=== PATIENT | male | born 1970 | race Two or more races ===

== ENCOUNTER 2016-11-02 15:22 | Emergency (ER) | payer OTHER, SELFPAY ==
[~2016-11-02] VITALS: Ht 182.9 cm; Wt 83.9 kg
[~2016-11-02 15:22] MED LIST: ASCO25TA PO; AZIT250T3 PO; MAPA325T2 PO
[2016-11-02] MEDS ORDERED: antibiotic (15:33)
[2016-11-02] MEDS ORDERED: LIDOCAINE W/EPINEPHRINE 1% 20ML VIAL As Ordered ONE (15:56)
[2016-11-02] MEDS ORDERED: LIDOCAINE W/EPINEPHRINE 1% 20ML VIAL SC ONE (16:00)
[2016-11-02] MEDS ORDERED: ULTR50TA PO (16:45)
[2016-11-02 16:51] VITALS: BP 114/65
== END 2016-11-02 16:58 | disposition home or self-care (01) ==
LOC: M ED 16:13
DX: L02.411 Cutaneous abscess of right axilla (principal)

== ENCOUNTER 2016-11-05 13:12 | Emergency (ER) | payer OTHER ==
[~2016-11-05] VITALS: Ht 182.9 cm; Wt 81.6 kg
[~2016-11-05 13:12] MED LIST changes: +ULTR50TA PO; +antibiotic
[2016-11-05 13:13] VITALS: BP 101/63
[2016-11-05] MEDS ORDERED: KEFL500C7 PO (13:54)
== END 2016-11-05 14:46 | disposition home or self-care (01) ==
LOC: M ED 14:19
DX: L73.2 Hidradenitis suppurativa (principal)

== ENCOUNTER 2017-04-07 18:26 | Emergency (ER) | payer OTHER ==
[~2017-04-07] VITALS: Ht 182.9 cm; Wt 85.2 kg
[2017-04-07 18:26] VITALS: BP 117/74
[~2017-04-07 18:26] MED LIST changes: +AZIT-12 PO; -AZIT250T3 PO; +KEFL500C17 PO; -ULTR50TA PO; +ULTR50TA8 PO
[2017-04-07] MEDS ORDERED: DOXY100C37 PO (19:37)
[2017-04-07] MEDS ORDERED: NORCOTAB PO (19:37)
== END 2017-04-07 19:54 | disposition home or self-care (01) ==
LOC: M ED 18:26
DX: L02.411 Cutaneous abscess of right axilla (principal); I51.9 Heart disease, unspecified; Z95.0 Presence of cardiac pacemaker; Z87.891 Personal history of nicotine dependence

== ENCOUNTER 2017-07-16 08:36 | Day surgery (SDC) | payer OTHER ==
[2017-07-16] MEDS ORDERED: NS 1,000 ML IV (09:45)
[2017-07-16] MEDS ORDERED: PROPOFOL 200 MG/20 ML VIAL As Ordered (10:27)
[2017-07-16] MEDS ORDERED: LIDOCAINE 2% INJ 100 MG/5 ML SDV (FOR ANES.) As Ordered (10:27)
== END 2017-07-16 11:00 | disposition home or self-care (01) ==
LOC: M OPP 08:36
DX: R13.10 Dysphagia, unspecified (principal); R12 Heartburn; K31.89 Other diseases of stomach and duodenum; R00.1 Bradycardia, unspecified; Z95.0 Presence of cardiac pacemaker; G71.11 Myotonic muscular dystrophy; Z87.891 Personal history of nicotine dependence
CPT/HCPCS: 43239

== ENCOUNTER 2020-11-15 05:25 | Inpatient (IN) | payer OTHER, SELFPAY ==
[~2020-11-15] VITALS: Ht 182.9 cm; Wt 80.2 kg
[~2020-11-15 05:25] MED LIST changes: +ASCO250T20 PO; -ASCO25TA PO; +DOXY100C37 PO; +HYDR-3715 PO; -MAPA325T2 PO; +MAPA325T8 PO
[2020-11-15 06:18] LABS: BASO % 0.3 % (0.0-1.0); HEMOGLOBIN 16.8 g/dl (13.5-17.5); LYMPH # 1.1 10^3/uL (1.5-5.0); MEAN CORPUSCULAR HEMOGLOBIN 30.2 pg (27.0-33.0); MEAN CORPUSCULAR HGB CONC 32.3 g/dl (32.0-36.5); MEAN CORPUSCULAR VOLUME 93.5 fl (80.0-96.0); MONO # 1.3 10^3/uL (0.0-0.8); MONO % 9.4 % (2.0-8.0); NEUTROPHILS # 11.4 10^3/uL (1.5-8.5); NEUTROPHILS % 81.7 % (36.0-66.0); PLATELET COUNT, AUTOMATED 220 10^3/uL (150-450); RED BLOOD COUNT 5.56 10^6/uL (4.30-6.10); WHITE BLOOD COUNT 13.9 10^3/uL (4.0-10.0)
--- NOTE | 2020-11-15 06:54 | REPVR ---
PROCEDURE INFORMATION: Exam: XR Chest Exam date and time: 11/15/2020 6:03 AM Age: 49 years old Clinical indication: Pain; Other: Not specified; Additional info: Trauma TECHNIQUE: Imaging protocol: XR of the chest. Views: 2 views. COMPARISON: CR Chest, 2 view PA, Lat 11/22/2015 8:22 AM FINDINGS: Lungs: Comparison to the previous chest radiograph from 11/22/2015 shows interval development of subsegmental atelectasis in the right lung base. The remainder of the lungs are otherwise well-aerated. Pleural spaces: Unremarkable. No pleural effusion. No pneumothorax. Heart/Mediastinum: A left subclavian dual-chamber pacemaker is present in satisfactory position, unchanged. The heart size is normal. Bones/joints: Unremarkable. IMPRESSION: 1. Comparison to the previous chest radiograph from 11/22/2015 shows interval development of subsegmental atelectasis in the right lung base. The remainder of the lungs are otherwise well-aerated. 2. A left subclavian dual-chamber pacemaker is present in satisfactory position, unchanged. The heart size is normal. Electronically signed by: Rehan Larsen On 11/15/2020 06:54:11 AM
[2020-11-15 06:55] LABS: BLOOD UREA NITROGEN 6 MG/DL (7-18); GLOMERULAR FILTRATION RATE > 60.0 (>60); GLUCOSE, FASTING 92 MG/DL (70-100); SODIUM LEVEL 138 MEQ/L (136-145)
[2020-11-15 06:56] LABS: ALBUMIN 3.4 GM/DL (3.2-5.2); ALT/SGPT 30 U/L (12-78); BILIRUBIN,DIRECT 0.3 MG/DL (0.0-0.2); BILIRUBIN,TOTAL 0.9 MG/DL (0.2-1.0); CALCIUM LEVEL 9.6 MG/DL (8.5-10.1); CARBON DIOXIDE LEVEL 29 MEQ/L (21-32); CHLORIDE LEVEL 103 MEQ/L (98-107); CK-MB VALUE MASS 3.5 NG/ML (<3.6); CPK CREATINE PHOSPHOKINASE 559 U/L (39-308); FREE T4 1.04 NG/DL (0.76-1.46); MB/CK RELATIVE INDEX 0.63 (< OR =4); POTASSIUM SERUM 4.5 MEQ/L (3.5-5.1); THYROID STIMULATING HORMONE 0.478 uIU/ML (0.358-3.740); TOTAL PROTEIN 7.6 GM/DL (6.4-8.2); TROPONIN I < 0.02 NG/ML (< 0.10)
[2020-11-15] MEDS ORDERED: ACETAMINOPHEN TAB 650MG DOSE (2X325MG) PO ONE (08:00)
[2020-11-15 08:08] LABS: ETHYL ALCOHOL (ETHANOL) < 0.003 % (0.000-0.010)
--- NOTE | 2020-11-15 09:53 | REP ---
INDICATION: fever, hypoxia COMPARISON: None TECHNIQUE: Axial noncontrast images from the thoracic inlet to the upper abdomen with coronal and sagittal reformations. This CT examination was performed using the following dose reduction techniques: Automated exposure control, adjustment of mA and/or kv according to the patient's size, and use of iterative reconstruction technique. FINDINGS: Mild to moderate bibasilar atelectasis (left greater than right) noted. No effusion. No pneumothorax. Underlying chronic mild emphysematous changes suggested. Tracheobronchial tree is patent. No obvious adenopathy by noncontrast evaluation. Mediastinum demonstrates normal thoracic aorta and pulmonary vasculature. Pacemaker noted without cardiomegaly or pericardial effusion. IMPRESSION: Mild to moderate bibasilar atelectasis. <Electronically signed by Grant Siu > 11/15/20 [id number]
[2020-11-15] MEDS ORDERED: LIDOCAINE 2% 5ML JELLY UROJET TOP ONE (10:35)
[2020-11-15] MEDS ORDERED: NS 1,000 ML IV ONE (10:45)
[2020-11-15] MEDS ORDERED: ACETAMINOPHEN TAB 650MG DOSE (2X325MG) PO PRN (12:40)
[2020-11-15] MEDS ORDERED: cefTRIAXone SOD 1 GM in D5W MINI-BAG PLUS 50 ML IV SCH (14:00)
--- NOTE | 2020-11-15 14:17 | HPEPDOC ---
General Date of Admission November 15, 2020 at 12:36 Date of Service: November 15, 2020 Chief Complaint The patient is a 49-year-old male admitted with a reason for visit of Fever, Hypoxia, & Leukocytosis. Source: Patient History of Present Illness Mr. Nowak is a 49 year old male with bradycardia s/p pacemaker placement who presents after a fall and generalized weakness. Yesterday he had his second COVID vaccination. He does not know which brand he had, but he did not have any symptoms after the first COVID vaccination. After his second vaccination, his arm was sore. He was sitting on the couch when he fell to the ground. He denies loss of consciousness, but reported lightheadedness/dizzines, blurry vision, and generalized weakness. His arms were sore. His legs were weak. He could not stand or crawl. He told me he was down for about 8 hours. Afterwards, he reached onto the couch and grabbed his phone to call 911. He did not tell me why he waited 8 hours, but he said he could not reach initially. He was brought to the ED for evaluation. Work up in the ED was significant for leukocytosis of 13.9, hypoxia with pO2 of 60, and fever of 101. On examination, patient had course rales/rhonchi. When I saw patient, he was laying in bed. he had a red right eye, but says that he had bumped his mask into that eye. Otherwise, he had a cough since yesterday. It is a nonproductive cough. Imaging did not suggest infiltrate, but atelectasis, but he may have early pneumonia. Otherwise, no diarrhea or abdominal pain to suggest GI pathology. No neck stiffness or confusion to suggest brain pathology. Patient will be admitted for CAP. Home Medications No Active Prescriptions or Reported Meds Allergies Coded Allergies: No Known Allergies (Unverified , 11/15/20) Past Medical History Medical History 1. Bradycardia requiring pacemaker Surgical History 1. Pacemaker placement Family History Denies knowledge of medical history in parents Social History * Smoker: former Smoker (Quit 10 years ago, about 1 pack per month) Alcohol: occationally (Social drinker of beer) Drugs: denies A-FIB/CHADSVASC A-FIB History Current/History of A-Fib/PAF?: No Review of Systems Constitutional: Reports: Weakness; Denies: Chills Eyes: Reports: Vision change (Blurry vision this morning when falling) ENT: Denies: Sore Throat Skin: Reports: Rash (Boil in right armpit) Pulmonary: Reports: Cough (Non productive); Denies: Dyspnea Cardiovascular: Reports: Lt Headedness; Denies: Chest Pain Gastrointestinal: Denies: Abdominal Pain, Diarrhea Genitourinary: Denies: Dysuria Hematologic: Denies: Bruising Musculoskeletal: Denies: Neck Pain, Back Pain Neurological: Denies: Numbness Physical Examination General Exam: Positive: Alert, Cooperative Eye Exam: Positive: EOMI, Other Eye Symptoms (Eye redness in right eye, says he poked his eye with mask accidentially); Negative: Sclera icteric Neck Exam: Positive: Supple Chest Exam: Positive: Rales, Rhonchi Heart Exam: Positive: Rate Normal, Regular Rhythm Abdomen Exam: Positive: Normal bowel sounds, Soft; Negative: Tenderness Extremity Exam: Negative: Edema Skin Exam: Positive: Other skin issue (dry) Neuro Exam: Positive: Normal Speech, Cranial Nerves 3-12 NL Psych Exam: Positive: Oriented x 3, Other (sometimes evasive with questions) Vital Signs Vital Signs Date Time Temp Pulse Resp B/P (MAP) Pulse Ox O2 Delivery O2 Flow Rate FiO2 11/15/20 12:00 67 18 118/68 (85) 98 Nasal Cannula 1.0 11/15/20 10:15 97.6 Laboratory Data Labs 24H Laboratory Tests 2 11/15/20 05:43: Immature Granulocyte % (Auto) 0.6, Neutrophils (%) (Auto) 81.7H, Lymphocytes (%) (Auto) 8.0L, Monocytes (%) (Auto) 9.4H, Eosinophils (%) (Auto) 0.0, Basophils (%) (Auto) 0.3, Neutrophils # (Auto) 11.4H, Lymphocytes # (Auto) 1.1L, Monocytes # (Auto) 1.3H, Eosinophils # (Auto) 0.0, Basophils # (Auto) 0.0, Nucleated Red Blood Cells % (auto) 0.0, Anion Gap 6L, Glomerular Filtration Rate > 60.0, Regino cium Level 9.6, Total Bilirubin 0.9, Direct Bilirubin 0.3H, Aspartate Amino Transf (AST/SGOT) 30, Alanine Aminotransferase (ALT/SGPT) 30, Alkaline Phosphatase 98, Total Creatine Kinase 559H, Creatine Kinase MB 3.5, Creatine Kinase MB Relative Index 0.63, Troponin I < 0.02, Total Protein 7.6, Albumin 3.4, Albumin/Globulin Ratio 0.8, Thyroid Stimulating Hormone (TSH) 0.478, Free Thyroxine 1.04, Ethyl Alcohol Level < 0.003 11/15/20 08:11: POC pH (Misc Panel) 7.404, POC Base Excess (Misc Panel) 1.0, POC Saturated Percent O2 (Misc) 91L, POC pO2 (Misc Panel) 60.0L, POC pCO2 (Misc Panel) 40.5, POC HCO3 (Misc Panel) 25.4, POC Total CO2 (Misc Panel) 27.0 11/15/20 10:58: Urine Color YELLOW, Urine Appearance CLEAR, Urine pH 6.0, Urine Specific [place] 1.013, Urine Protein NEGATIVE, Urine Glucose (UA) NEGATIVE, Urine Ketones TRACEH, Urine Blood NEGATIVE, Urine Nitrite NEGATIVE, Urine Bilirubin NEGATIVE, Urine Urobilinogen 4.0H, Urine Leukocyte Esterase NEGATIVE, Urine WBC (Auto) 2, Urine RBC (Auto) 3, Urine Hyaline Casts (Auto) 0, Urine Bacteria (Auto) N EGATIVE, Urine Squamous Epithelial Cells 1, Urine Mucus (Auto) SMALL, Urine Sperm (Auto) 11/15/20 11:44: POC Lactate (Misc Panel) 0.87 CBC/BMP Laboratory Tests 11/15/20 05:43 Microbiology Microbiology 11/15/20 Blood Culture, Received Pending 11/15/20 Blood Culture, Received Pending 11/15/20 Respiratory Virus Panel (PCR) ([facility]) - Final, Complete Assessment/Plan Mr. Nowak is a 49 year old male with bradycardia s/p pacemaker placement who presents after a fall and generalized weakness. He has had a cough which started yesterday and his lungs had rales/rhonchi. He also has hypoxia, fever, and leukocytosis. Although imaging suggested atelectasis, he may have early pneumonia. Patient will be treated for CAP with ceftriaxone and doxycycline. Patient qTC is 505, thus doxycycline was chosen over azithromycin. His weakness may be from his pneumonia. Physical therapy ordered. Plan / VTE VTE Prophylaxis Ordered?: Yes Plan Plan 1. CAP -Hypoxia, fever, cough, and leukocytosis -Respiratory panel negative -Ceftriaxone and doxycycline day 1 -Imaging demonstrated atelectasis. Will order IS -Ordered sputum culture, legionella, and strep -Blood cultures pending -ESR and CRP pending 2. Bradycardia s/p pacemaker -Patient does not know why he had bradycardia. Denies history of tick bite -Patient had history of complete heart block -Supportive care and monitoring heart rate 3. DVT ppx -Lovenox Disposition: Pending clinical improvement RAEGAN RAMOS DO November 15, 2020 14:17
[2020-11-15 15:40] VITALS: BP 112/71
[2020-11-15] MEDS: DOXYCYCLINE HYCLATE 100 MG in D5W MINI-BAG PLUS 100 ML IV SCH (16:35)
--- NOTE | 2020-11-15 19:22 | REPVR ---
PROCEDURE INFORMATION: Exam: CT Head Without Contrast Exam date and time: 11/15/2020 3:17 PM Age: 49 years old Clinical indication: Injury or trauma; Fall; Blunt trauma (contusions or hematomas) TECHNIQUE: Imaging protocol: Computed tomography of the head without contrast. Radiation optimization: All CT scans at this facility use at least one of these dose optimization techniques: automated exposure control; mA and/or kV adjustment per patient size (includes targeted exams where dose is matched to clinical indication); or iterative reconstruction. COMPARISON: No relevant prior studies available. FINDINGS: Brain: [id number] global parenchymal atrophy atypical in this age group. Cerebral ventricles: No ventriculomegaly. Paranasal sinuses: Visualized sinuses are unremarkable. No fluid levels. Mastoid air cells: Visualized mastoid air cells are well aerated. Bones/joints: Unremarkable. No acute fracture. Soft tissues: Unremarkable. Nasal cavity: Bilateral godfrey bullosa. IMPRESSION: 1. [id number] global parenchymal atrophy atypical in this age group. 2. No acute intracranial findings. Electronically signed by: Fernando Gray On 11/15/2020 19:21:55 PM
[2020-11-15 22:00] VITALS: BP 126/76
[2020-11-16] MEDS: DOXYCYCLINE HYCLATE 100 MG in D5W MINI-BAG PLUS 100 ML IV SCH (03:01)
--- NOTE | 2020-11-16 05:14 | ECGEPIP ---
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
[2020-11-16 06:00] VITALS: BP 123/76
[2020-11-16 07:58] LABS: HEMATOCRIT 49.9 % (42.0-52.0); HEMOGLOBIN 15.9 g/dl (13.5-17.5); MEAN CORPUSCULAR HEMOGLOBIN 30.2 pg (27.0-33.0); MEAN CORPUSCULAR HGB CONC 31.9 g/dl (32.0-36.5); MEAN CORPUSCULAR VOLUME 94.7 fl (80.0-96.0); PLATELET COUNT, AUTOMATED 195 10^3/uL (150-450); RED BLOOD COUNT 5.27 10^6/uL (4.30-6.10); WHITE BLOOD COUNT 11.1 10^3/uL (4.0-10.0)
[2020-11-16 08:24] LABS: BLOOD UREA NITROGEN 7 MG/DL (7-18); CALCIUM LEVEL 9.1 MG/DL (8.5-10.1); CARBON DIOXIDE LEVEL 28 MEQ/L (21-32); CHLORIDE LEVEL 108 MEQ/L (98-107); GLOMERULAR FILTRATION RATE > 60.0 (>60); GLUCOSE, FASTING 89 MG/DL (70-100); POTASSIUM SERUM 3.7 MEQ/L (3.5-5.1); SODIUM LEVEL 140 MEQ/L (136-145)
[2020-11-16] MEDS ORDERED: ENOXAPARIN 40MG/0.4ML SYRINGE (J1650 PER 10MG) SC SCH (09:00)
[2020-11-16 10:45] VITALS: BP 118/73
[2020-11-16] MEDS ORDERED: CEFD1CAP8 PO (11:08)
[2020-11-16] MEDS ORDERED: DOXY100C PO (11:08)
--- NOTE | 2020-11-16 23:41 | DS.PDOC ---
Discharge Summary General Date of Admission November 15, 2020 at 12:36 Date of Discharge November 16, 2020 Discharge Summary PROCEDURES PERFORMED DURING STAY: None ADMITTING DIAGNOSES: 1. Community acquired pneumonia 2. Hidradenitis suppurativa 3. Bradycardia s/p pacemaker DISCHARGE DIAGNOSES: 1. Community acquired pneumonia 2. Hidradenitis suppurativa 3. Bradycardia s/p pacemaker COMPLICATIONS/CHIEF COMPLAINT: Fever, Hypoxia, & Leukocytosis. HISTORY OF PRESENT ILLNESS: Mr. Nowak is a 49 year old male with bradycardia s/p pacemaker placement who presents after a fall and generalized weakness. Yesterday he had his second COVID vaccination. He does not know which brand he had, but he did not have any symptoms after the first COVID vaccination. After his second vaccination, his arm was sore. He was sitting on the couch when he fell to the ground. He denies loss of consciousness, but reported lighthe adedness/dizzines, blurry vision, and generalized weakness. His arms were sore. His legs were weak. He could not stand or crawl. He told me he was down for about 8 hours. Afterwards, he reached onto the couch and grabbed his phone to call 911. He did not tell me why he waited 8 hours, but he said he could not reach initially. He was brought to the ED for evaluation. Work up in the ED was significant for leukocytosis of 13.9, hypoxia with pO2 of 60, and fever of 101. On examination, patient had course rales/rhonchi. When I saw patient, he was laying in bed. he had a red right eye, but says that he had bumped his mask into that eye. Otherwise, he had a cough since yesterday. It is a nonproductive cough. Imaging did not suggest infiltrate, but atelectasis, but he may have early pneumonia. Otherwise, no diarrhea or abdominal pain to suggest GI pathology. No neck stiffness or confusion to suggest brain pathology. Patient will be admitted for CAP. HOSPITAL COURSE: Later that day, nurse noted patient's right armpit had a lump with foul smelling pus. I examined the area. Does not appear to be cellulitis. No erythema, but there was pus that could be expressed. Cultures were taken. Otherwise, patient did well overnight and was afebril. The next day, his lungs sounded completely clear. He felt well and felt ready for home. He recovered quicker than expected. Patient was discharged home with doxycycline and cefdinir. DISCHARGE MEDICATIONS: Please see below. ALLERGIES: Please see below. PHYSICAL EXAMINATION ON DISCHARGE: VITAL SIGNS: Please see below. GENERAL: Comfortable, in no apparent distress. HEENT: Head normocephalic/atraumatic, EOMI. NECK: Supple. RESPIRATORY: Lungs clear to auscultation bilaterally, no rales, wheeze or rhonchi. CARDIOVASCULAR: Regular rate and rhythm. ABDOMEN: Soft, nontender, no guarding or rebound tenderness. Normal bowel sounds. MUSCLE SKELETAL: Muscle strength 5/5 in all extremities. NEUROLOGICAL: CN 312 grossly intact, no focal deficits noted. PSYCHOLOGICAL: Normal mood and affect LABORATORY DATA: Please see below. IMAGING: Radiologist interpretation CT chest without contrast Mild to moderate bibasilar atelectasis. CT head without contrast 1. Lemi-pf-gnngbyqm global parenchymal atrophy atypical in this age group. 2. No acute intracranial findings. PROGNOSIS: Good ACTIVITY: As tolerated. DIET: As tolerated DISCHARGE PLAN: Home DISPOSITION: 01 Home, Self-Care. DISCHARGE INSTRUCTIONS: 1. Follow up with your PCP in 1 week 2. Take cefdinir and doxycycline to completion ITEMS TO FOLLOWUP ON ON OUTPATIENT: 1. Abscess culture DISCHARGE CONDITION: Stable Total time spent on discharge planning, discharge summary, and medication reconciliation: 55 minutes Vital Signs/I&Os Vital Signs Date Time Temp Pulse Resp B/P (MAP) Pulse Ox O2 Delivery O2 Flow Rate FiO2 11/16/20 10:45 99.6 86 16 118/73 (88) 94 Room Air 11/15/20 14:30 1.0 I&O- Last 24 Hours up to 6 AM 11/16/20 06:00 Intake Total 1750 ml Output Total 400 ml Balance 1350 ml Laboratory Data Labs 24H Laboratory Tests 2 11/16/20 07:44: Nucleated Red Blood Cells % (auto) 0.0, Anion Gap 4L, Glomerular Filtration Rate > 60.0, Calcium Level 9.1 CBC/BMP Laboratory Tests 11/16/20 07:44 Microbiology Microbiology 11/15/20 Gram Stain - Final, Resulted 11/15/20 Abscess Culture, Resulted Pending 11/15/20 Blood Culture - Preliminary, Resulted No growth after 24 hours . All specim... 11/15/20 Blood Culture - Preliminary, Resulted No growth after 24 hours . All specim... 11/15/20 Respiratory Virus Panel (PCR) ([facility]) - Final, Complete Discharge Medications Scheduled Cefdinir (Cefdinir) 300 Mg Capsule, 300 MG PO BID Doxycycline Hyclate (Doxycycline Hyclate) 100 Mg Capsule, 100 MG PO BID Allergies Coded Allergies: No Known Allergies (Unverified , 11/15/20) RAEGAN RAMOS DO November 16, 2020 23:41
== END 2020-11-16 12:45 | disposition home or self-care (01) | DRG 139 ==
LOC: M ED 05:25 → M ED INP 12:36 → ENRESERV 14:00 → M MS5PR 15:35
PROVIDERS: ADMIT Internal Medicine; ATTEND Internal Medicine
DX: J18.9 Pneumonia, unspecified organism (principal); R00.1 Bradycardia, unspecified; L73.2 Hidradenitis suppurativa; D72.829 Elevated white blood cell count, unspecified; R09.02 Hypoxemia; J98.11 Atelectasis; R50.9 Fever, unspecified; L02.411 Cutaneous abscess of right axilla; Z79.899 Other long term (current) drug therapy; Z87.891 Personal history of nicotine dependence; Z20.822 Contact with and (suspected) exposure to COVID-19; Z95.0 Presence of cardiac pacemaker

== ENCOUNTER 2021-03-28 16:56 | Inpatient (IN) | payer MEDICARE, SELFPAY ==
[~2021-03-28] VITALS: Ht 182.9 cm; Wt 73.2 kg
[~2021-03-28 16:56] MED LIST changes: +CEFD1CAP8 PO; +DOXY100C3 PO; -DOXY100C37 PO; +DOXY1CAP62 PO
[2021-03-28] MEDS ORDERED: vitamin d (17:22)
--- NOTE | 2021-03-28 17:50 | REP ---
INDICATION: DYSPNEA/COUGH. COMPARISON: 11/15/2020 a two view exam TECHNIQUE: Portable FINDINGS: The technique utilized in obtaining the radiograph has magnified the cardiac silhouette and accentuated the interstitial markings. The cardiomediastinal silhouette is stable. Heart is not enlarged. Discoid opacity left lower lobe retrocardiac region. The lung murry are hypoexpanded. The pleural angles are sharp. The osseous structures are within normal limits. IMPRESSION: Right lower lobe opacity subsegmental atelectatic change versus developing pneumonia. <Electronically signed by Marty De La Cruz > 03/28/21 [id number]
[2021-03-28 18:20] LABS: VENOUS BASE EXCESS 4.3 (-2.0-2.0); VENOUS HCO3 31.9 MEQ/L (23.0-27.0); VENOUS PARTIAL PRESSURE CO2 59.5 mmHg (38.0-50.0); VENOUS PARTIAL PRESSURE O2 35.6 mmHg (30.0-50.0); VENOUS PH 7.347 UNITS (7.330-7.430); VENOUS STANDARD HCO3 27.4 MEQ/L; VENOUS TOTAL CO2 33.7 MEQ/L (24.0-28.0)
[2021-03-28] MEDS ORDERED: cefTRIAXone SOD 2 GM in D5W MINI-BAG PLUS 50 ML IV ONE (18:20)
[2021-03-28 18:34] LABS: BASO % 0.2 % (0.0-1.0); EOS # 0.1 10^3/uL (0.0-0.5); EOS % 0.5 % (0.0-3.0); HEMATOCRIT 45.9 % (42.0-52.0); HEMOGLOBIN 14.4 g/dl (13.5-17.5); LYMPH # 2.5 10^3/uL (1.5-5.0); LYMPH % 19.8 % (24.0-44.0); MEAN CORPUSCULAR HEMOGLOBIN 29.5 pg (27.0-33.0); MEAN CORPUSCULAR HGB CONC 31.4 g/dl (32.0-36.5); MEAN CORPUSCULAR VOLUME 94.1 fl (80.0-96.0); MONO % 7.5 % (2.0-8.0); NEUTROPHILS # 9.1 10^3/uL (1.5-8.5); NEUTROPHILS % 71.3 % (36.0-66.0); PLATELET COUNT, AUTOMATED 352 10^3/uL (150-450); RED BLOOD COUNT 4.88 10^6/uL (4.30-6.10); WHITE BLOOD COUNT 12.8 10^3/uL (4.0-10.0)
[2021-03-28 18:38] LABS: INR 1.18; PROTHROMBIN TIME 15.5 SECONDS (12.7-14.5)
[2021-03-28 18:39] LABS: PARTIAL THROMBOPLASTIN TIME 33.1 SECONDS (25.9-37.0)
[2021-03-28 18:59] LABS: ALT/SGPT 16 U/L (12-78); BILIRUBIN,DIRECT 0.2 MG/DL (0.0-0.2); BILIRUBIN,TOTAL 0.4 MG/DL (0.2-1.0); BLOOD UREA NITROGEN 7 MG/DL (7-18); CALCIUM LEVEL 9.6 MG/DL (8.5-10.1); CARBON DIOXIDE LEVEL 33 MEQ/L (21-32); CHLORIDE LEVEL 103 MEQ/L (98-107); CK-MB VALUE MASS 3.1 NG/ML (<3.6); CPK CREATINE PHOSPHOKINASE 199 U/L (39-308); CREATININE FOR GFR 0.64 MG/DL (0.70-1.30); GLOMERULAR FILTRATION RATE > 60.0 (>56); GLUCOSE, FASTING 87 MG/DL (70-100); MB/CK RELATIVE INDEX 1.56 (< OR =4); NT-PRO BNP 268 PG/ML (<125); POTASSIUM SERUM 4.2 MEQ/L (3.5-5.1); SODIUM LEVEL 140 MEQ/L (136-145); THYROXINE (T4) 8.9 UG/DL (4.5-12.0); TOTAL PROTEIN 8.1 GM/DL (6.4-8.2); TROPONIN I < 0.02 NG/ML (< 0.10)
[2021-03-28] MEDS ORDERED: ISOVUE-370 76% 100ML VIAL As Ordered ONE (19:16)
--- NOTE | 2021-03-28 21:46 | REPVR ---
PROCEDURE INFORMATION: Exam: CTA Chest With Contrast Exam date and time: 03/28/2021 7:46 PM Age: 50 years old Clinical indication: Other: Hypoxia TECHNIQUE: Imaging protocol: Computed tomographic angiography of the chest with contrast. 3D rendering (Not supervised by radiologist): MIP and/or 3D reconstructed images were created by the technologist. Radiation optimization: All CT scans at this facility use at least one of these dose optimization techniques: automated exposure control; mA and/or kV adjustment per patient size (includes targeted exams where dose is matched to clinical indication); or iterative reconstruction. Contrast material: ISOVUE 370; Contrast volume: 75 ml; Contrast route: INTRAVENOUS (IV); COMPARISON: CT Chest without contrast 11/15/2020 9:42 AM FINDINGS: Pulmonary arteries: Normal. No pulmonary emboli. Aorta: Unremarkable. No aortic aneurysm. No aortic dissection. Lungs: Atelectasis at bilateral lung bases. Bilateral paraseptal emphysema, right greater than left. Pleural spaces: Unremarkable. No pneumothorax. No pleural effusion. Heart: Unremarkable. No cardiomegaly. No pericardial effusion. Lymph nodes: Unremarkable. No enlarged lymph nodes. Liver: Multiple cystic lesions in the liver with the largest measuring 2.6 cm in the right hepatic lobe. Bones/joints: Unremarkable. No acute fracture. Soft tissues: Unremarkable. IMPRESSION: 1. Atelectasis at bilateral lung bases. 2. No pulmonary embolism. Electronically signed by: Arturo Hernadez On 03/28/2021 21:45:58 PM
[2021-03-28] MEDS ORDERED: MOM 30ML SUSPENSION UDC PO PRN (22:00)
[2021-03-28] MEDS ORDERED: MAALOX 30 ML SUSP *UDC PO PRN (22:00)
[2021-03-28] MEDS ORDERED: ACETAMINOPHEN TAB 650MG DOSE (2X325MG) PO PRN (22:00)
--- NOTE | 2021-03-28 22:06 | HPEPDOC ---
[facility] Medical History & Physical Date of Admission Mar 28, 2021 Date of Service: Mar 28, 2021 Attending Physician: GLORY VICKERS MD History and Physical CHIEF COMPLAINT: Shortness of breath and lightheadedness HISTORY OF PRESENT ILLNESS: Rigo is a pleasant 50yo male w/ notable PMHx of bradycardia/heart block s/p pacemaker (2018) and unspecified musculoskeletal weakness issue (uses cane for ambulation, follows w/ neurology in [place]) who presented to the [facility] ED on 03/28/21 with a chief complaint of shortness of breath and lightheadedness. Patient story dates back roughly a week and a half when he began feeling lightheaded with intermittent episodes of dyspnea and generalized malaise. For about a week, the patient had decreased appetite with corresponding decreased oral intake with no vomiting or abdominal pain. He continued to use his as needed home albuterol inhaler for the intermittent shortness of breath episodes and implemented rest and supportive care at home. Roughly 48 hours ago, the patient's symptoms had significantly improved and he was feeling much better. His appetite was improving and he was in the process of making a meal this afternoon when he became acutely short of breath, "gasping for air." He was breathing rapidly and bringing up yellow phlegm. He denies any associated fever, chills, night sweats, recent unintentional change in weight, hemoptysis, chest pain, pleuritic chest pain, palpitations, abdominal pain/nausea/vomiting/diarrhea/blood in stool, dysuria, hematuria, new lumps or bumps, or easy bleeding or bruising. In addition, the patient denies any recent changes in his medication regimen, extensive travel, known sick contact exposure. Of note, patient reports he usually gets similar episodes of dyspnea a couple times a year at the change of season. He was most recently admitted for community-acquired pneumonia in October 2020. In the ED, the patient was found to be hypoxic (initial SPO2 83%) and started on nasal cannula supplemental oxygen. He was also significantly tachypneic and tachycardic. Labs showed leukocytosis with left shift, lactic acid of 2.3. Negative respiratory viral panel. Chest x-ray showed a right lower lobe deve loping pneumonia versus atelectasis. CTA was negative for PE. Patient was administered one-time dose of ceftriaxone. Patient's PCP is through the [facility]. PAST MEDICAL HISTORY: Bradycardia and complete heart block status post pacemaker placement Unspecified musculoskeletal condition requiring cane for ambulation, patient follows with neurology in [place] -Patient states that he has muscular dystrophy and that was diagnosed roughly 5-6 years ago PAST SURGICAL HISTORY: Pacemaker placement in August 2017 SOCIAL HISTORY: Patient lives with his girlfriend in [facility]. He is currently on disability due to his unspecified musculoskeletal issue and is a former member of the [employer]. Patient is a former cigarette smoker having quit 3 years ago. Prior to quitting, he had smoked for 15 years, averaging roughly 1 pack/month. Patient drinks alcohol on an intermittent basis, usually having 2-3 beers per week. Patient formally smoked marijuana and denies any other illegal and/or IV drug use. FAMILY HISTORY: Patient reports no significant medical history in first-degree relatives. ALLERGIES: Please see below. REVIEW OF SYSTEMS: 10 point review of systems complete, all negative otherwise stated in HPI HOME MEDICATIONS: Please see below. PHYSICAL EXAMINATION: VITAL SIGNS: Temperature 98.6, pulse 91, respiratory rate 24, blood pressure 117/77, pulse oximetry 93% on 4 L nasal cannula supplemental oxygen. GENERAL APPEARANCE: Pleasant darker skinned male lying upright in bed. Appears fatigued as well as somewhat older than stated age. HEENT: Normocephalic, atraumatic. There are areas on the vertex of his scalp with slightly erythematous borders and almost mild depigmentation centrally. Wearing nasal cannula supplemental oxygen. Noninjected, anicteric sclera. No significant conjunctival pallor appreciated. PERRLA. Oral cavity: No pharyngeal erythema or exudate appreciated. Neck: No lymphadenopathy appreciated. Trachea midline. CARDIOVASCULAR: Borderline tachycardic rate, regular rhythm. Normal S1, S2. No murmurs or rubs appreciated. LUNGS: Currently breathing on 4 L nasal cannula supplemental oxygen. Does not appear to be in any acute respiratory distress with no visualized accessory muscle use. There are coarse rhonchi throughout all lung murry as well as some crackles appreciated in the mid to lower lobes posteriorly. Symmetric chest expansion. Adequate respiratory effort. Some mild E to a egophony in the mid lung region posteriorly. No conversational dyspnea. ABDOMEN: Soft, nontender nondistended. No guarding or rigidity appreciated. Normoactive bowel sounds throughout. EXTREMITIES: Thin extremities with no lower extremity pitting edema. There is an anterior luciano abrasion of the left leg. 2+ radial pulses bilaterally. There is a shortened left pinky finger. NEUROLOGICAL: No gross focal neurologic deficits appreciated. Nondysarthric speech. PSYCHIATRIC: Mood and affect appear appropriate LABORATORY DATA: Please see below. IMAGING: Portable chest x-ray, 03/28/2021 FINDINGS: The technique utilized in obtaining the radiograph has magnified the cardiac silhouette and accentuated the interstitial markings. The cardiomediastinal silhouette is stable. Heart is not enlarged. Discoid opacity left lower lobe retrocardiac region. The lung murry are hypoexpanded. The pleural angles are sharp. The osseous structures are within normal limits. IMPRESSION: Right lower lobe opacity subsegmental atelectatic change versus developing pne umonia. CT angiography of the chest with contrast, 03/28/2021 FINDINGS: Pulmonary arteries: Normal. No pulmonary emboli. Aorta: Unremarkable. No aortic aneurysm. No aortic dissection. Lungs: Atelectasis at bilateral lung bases. Bilateral paraseptal emphysema, right greater than left. Pleural spaces: Unremarkable. No pneumothorax. No pleural effusion. Heart: Unremarkable. No cardiomegaly. No pericardial effusion. Lymph nodes: Unremarkable. No enlarged lymph nodes. Liver: Multiple cystic lesions in the liver with the largest measuring 2.6 cm in the right hepatic lobe. Bones/joints: Unremarkable. No acute fracture. Soft tissues: Unremarkable. IMPRESSION: 1. Atelectasis at bilateral lung bases. 2. No pulmonary embolism. MICROBIOLOGY: Please see below. ASSESSMENT & PLAN: This is a 50-year-old male with history of bradycardia and complete heart block status post pacemaker, unspecified musculoskeletal condition with related baseline weakness who presented to the ED on 03/28 with a chief complaint of acute shortness of breath. He was hypoxic in the ED with leukocytosis and imaging showing developing pneumonia versus atelectasis in the right lower lobe. #Acute hypoxic respiratory failure -likely secondary to right lower lobe CAP versus bilateral atelectasis versus acute exacerbation of paraseptal emphysema -Patient had been having intermittent shortness of breath over the past week and a half that acutely got worse today -Initial O2 saturation on room air of 83% with tachypnea; at time of admission, was saturating in the mid 90s on 4 L nasal cannula -Chest x-ray showed a right lower lobe opacity registration representative of atelectasis versus developing pneumonia -Patient had diffuse rhonchi and crackles on examination with leukocytosis -Respiratory viral panel negative with CTA; no PE on CTA -2 sets of blood cultures were ordered in the ED; sputum culture ordered; pr ocalcitonin -incentive spirometry; Acapella; Mucinex twice a day -s/p 1 dose of ceftriaxone in the ED; daily ceftriaxone ordered along with doxycycline IV (QTC 517 on EKG; azithromycin deferred); continuous pulse ox with O2 titration orders -Atypical PNA work-up ordered #Sepsis -likely secondary to developing community-acquired pneumonia -Initial white count of 12.8 with absolute neutrophilia, lactic acid of 2.3, tachypnea, tachycardia, and hypoxia -Patient has remained hemodynamically stable since presenting to the ED -Infectious work-up ordered (chest x-ray imaging findings above), 2 sets of blood cultures, sputum culture -Antimicrobial pharmacotherapy ordered for community-acquired pneumonia #Right lower lobe opacity, developing community-acquired pneumonia versus atelectasis -See above work-up for possible community-acquired pneumonia #Lactic acidosis -likely secondary to hypoxia from bilateral atelectasis versus community-acquired pneumonia -Initial serum lactic acid level of 2.3 -Four-hour follow-up lactic acid level came down to 2.0 #Bilateral atelectasis and paraseptal emphysema -This was seen on both chest x-ray and CTA -Patient is a former smoker -There is a potential that this may be an exacerbation of a chronic obstructive pulmonary disease rather than community-acquired pneumonia -Monitor results of infectious work-up and procalcitonin -Patient likely would warrant outpatient pulmonology assessment upon discharge #History of bradycardia and complete heart block s/p pacemaker Etiology of patient's bradycardia is unknown to patient. He previously has denied any history of a tick bite. -Telemetry #History of unspecified musculoskeletal condition -Patient only recently turned 50 years old and uses a cane for ambulation at baseline -Patient follows with a neurologist in the [place] area and reports being diagnosed with muscular dystrophy 5-6 years ago #DVT prophylaxis: Subcutaneous Lovenox Code status: Full code Disposition: Admit to the medical surgical floor and pending clinical improvement in respiratory status with treatment for CAP. Vital Signs Vital Signs Date Time Temp Pulse Resp B/P (MAP) Pulse Ox O2 Delivery O2 Flow Rate FiO2 03/28/21 21:54 89 20 119/78 (92) 95 Nasal Cannula 2.0 03/28/21 16:56 98.6 Laboratory Data Labs 24H Laboratory Tests 2 03/28/21 18:05: Prothrombin Time 15.5H, Prothromb Time International Ratio 1.18, Activated Partial Thromboplast Time 33.1, Anion Gap 4L, Glomerular Filtration Rate > 60.0, Calcium Level 9.6, Total Bilirubin 0.4, Direct Bilirubin 0.2, Aspartate Amino T ransf (AST/SGOT) 20, Alanine Aminotransferase (ALT/SGPT) 16, Alkaline Phosphatase 79, Total Creatine Kinase 199, Creatine Kinase MB 3.1, Creatine Kinase MB Relative Index 1.56, Troponin I < 0.02, EV-Pzx-L-Type Natriuretic Peptide 268H, Total Protein 8.1, Albumin 3.0L, Albumin/Globulin Ratio 0.6, Thy roid Stimulating Hormone (TSH) 1.430, Thyroxine (T4) 8.9 03/28/21 18:06: Immature Granulocyte % (Auto) 0.7, Neutrophils (%) (Auto) 71.3H, Lymphocytes (%) (Auto) 19.8L, Monocytes (%) (Auto) 7.5, Eosinophils (%) (Auto) 0.5, Basophils (%) (Auto) 0.2, Neutrophils # (Auto) 9.1H, Lymphocytes # (Auto) 2.5, Monocytes # (Auto) 1.0H, Eosinophils # (Auto) 0.1, Basophils # (Auto) 0.0, Nucleated Red Blood Cells % (auto) 0.0, Blood Gas Bicarbonate Standard 27.4, Venous Blood pH 7.347, Venous Blood Partial Pressure CO2 59.5H, Venous Blood Partial Pressure O2 35.6, Venous Blood Total Carbon Dioxide 33.7H, Venous Blood HCO3 31.9H, Venous Blood Oxygen Saturation 64.0, Venous Blood Base Excess 4.3H, Lactic Acid Level 2.3*H CBC/BMP Laboratory Tests 03/28/21 18:05 03/28/21 18:06 Microbiology Microbiology 03/28/21 Blood Culture, Received Pending 03/28/21 Blood Culture, Received Pending 03/28/21 Respiratory Virus Panel (PCR) ([facility]) - Final, Complete Home Medications Scheduled Cholecalciferol (Vitamin D3) (Vitamin D3) 50 Mcg Capsule, 50 MCG PO DAILY Scheduled PRN Acetaminophen (Tylenol Extra Strength) 500 Mg Tablet, 1,000 MG PO Q6H PRN for HEADACHE OR MILD PAIN Allergies Coded Allergies: No Known Allergies (Unverified , 11/15/20) GME ATTESTATION GME ATTESTATION My faculty preceptor for this patient encounter was physically present during the encounter and was fully available. All aspects of the patient interview, examination, medical decision making process, and medical care plan development were reviewed and approved by the faculty preceptor. The faculty preceptor is aware and concurs with the plan as stated in the body of this note and will attest to such by his/her cosignature. ATTENDING NOTE Time of service 840pm Mr. Champagne is a 50 yr old M admitted for: #Sepsis 2/2 CAP # Hypoxemia 2/2 RLL PNA rest per 's H&P PEPPER MITCHELL D.O. Mar 28, 2021 22:06 GLORY VICKERS MD Mar 29, 2021 03:28
[2021-03-28 22:45] VITALS: BP 132/83
[2021-03-28] MEDS: DOXYCYCLINE HYCLATE 100 MG in D5W MINI-BAG PLUS 100 ML IV SCH (23:03)
[2021-03-28] MEDS: guaiFENesin ER 600 MG TAB PO SCH (23:03)
[2021-03-29] MEDS ORDERED: VITA200021 PO (00:03)
[2021-03-29] MEDS ORDERED: ACET-897 PO (00:03)
[2021-03-29] MEDS ORDERED: HOME MED LIST COMPLETE! XX SCH (00:05)
[2021-03-29] MEDS ORDERED: NS 1,000 ML IV SCH (03:30)
[2021-03-29 03:36] VITALS: O2SAT 94
--- NOTE | 2021-03-29 04:19 | ECGEPIP ---
[facility] - ED Test Date: 2021-03-28 Pat Name: CHOLO ROMERO Department: Room: - Gender: Male Deputy Manager: CHERRY : 1970 Requested By: AMANDA Chua Order Number: [id number] Reading MD: Brown Baez Measurements Intervals Harman Rate: 87 P: 93 ND: 240 QRS: -60 QRSD: 164 T: 102 QT: 430 QTc: 517 Interpretive Statements Atrial-sensed ventricular-paced rhythm with prolonged AV conduction SIMILAR TO 11/15/20 Electronically Signed on 03-29-2021 4:19:03 EDT by Brown Baez
[2021-03-29 06:00] VITALS: BP 112/71
[2021-03-29 06:03] LABS: HEMATOCRIT 42.6 % (42.0-52.0); HEMOGLOBIN 13.8 g/dl (13.5-17.5); MEAN CORPUSCULAR HEMOGLOBIN 29.9 pg (27.0-33.0); MEAN CORPUSCULAR HGB CONC 32.4 g/dl (32.0-36.5); MEAN CORPUSCULAR VOLUME 92.4 fl (80.0-96.0); PLATELET COUNT, AUTOMATED 305 10^3/uL (150-450); RED BLOOD COUNT 4.61 10^6/uL (4.30-6.10); WHITE BLOOD COUNT 14.7 10^3/uL (4.0-10.0)
[2021-03-29 06:27] LABS: BLOOD UREA NITROGEN 3 MG/DL (7-18); CALCIUM LEVEL 8.8 MG/DL (8.5-10.1); CARBON DIOXIDE LEVEL 31 MEQ/L (21-32); CHLORIDE LEVEL 105 MEQ/L (98-107); CREATININE FOR GFR 0.52 MG/DL (0.70-1.30); GLOMERULAR FILTRATION RATE > 60.0 (>56); GLUCOSE, FASTING 72 MG/DL (70-100); MAGNESIUM LEVEL 1.9 MG/DL (1.8-2.4); POTASSIUM SERUM 3.7 MEQ/L (3.5-5.1); SODIUM LEVEL 140 MEQ/L (136-145)
[2021-03-29] MEDS: IPRATROPIUM 0.5MG/ALBUTEROL 2.5MG INH SOL UD 3ML (DUONEB) NEB SCH ×3 (08:00→15:40)
[2021-03-29] MEDS: guaiFENesin ER 600 MG TAB PO SCH ×2 (08:53→21:43)
[2021-03-29] MEDS: ENOXAPARIN 40MG/0.4ML SYRINGE (J1650 PER 10MG) SC SCH (08:54)
[2021-03-29 10:08] VITALS: O2SAT 97
--- NOTE | 2021-03-29 10:37 | IPNPDOC ---
Subjective Date Seen The patient was seen on 03/29/21. Subjective Chief Complaint/HPI feeling much better this morning. cough is less, SOB is better. Objective Physical Examination General Exam: Positive: Alert, Cooperative, No Acute Distress Eye Exam: Positive: PERRLA, Conjunctiva & lids normal, EOMI; Negative: Sclera icteric Chest Exam: Positive: Rales, Rhonchi, Other (Bilateral coarse breath sounds and crackles at the left base) Heart Exam: Positive: Rate Normal, Regular Rhythm, Normal S1, Normal S2; Negative: Gallops, Murmurs, Rubs Abdomen Exam: Positive: Normal bowel sounds, Soft; Negative: Tenderness Extremity Exam: Negative: Clubbing, Cyanosis, Edema Psych Exam: Positive: Memory Intact, Oriented x 3 Assessment /Plan Assessment This is 50yo male w/ notable PMHx of bradycardia/heart block s/p pacemaker (2018), muscular dystrophy (uses cane for ambulation, follows w/ neurology in [place]), asthma who presented to the [facility] ED on 03/28/21 with a chief complaint of intermittent episodes of shortness of breath and lightheadedness for about 10 days. About 48 hours prior to admission the patient's symptoms had significantly improved and he was feeling much better. His appetite was improving and he was in the process of making a meal in the afternoon of the day of admission when he became acutely short of breath, "gasping for air." He was breathing rapidly and bringing up yellow phlegm. So presented to the ED. In the ED, the patient was found to be hypoxic (initial SPO2 83%) and started on nasal cannula supplemental oxygen. He was also significantly tachypneic and tachycardic. Labs showed leukocytosis with left shift, lactic acid of 2.3. Negative respiratory viral panel. Chest x-ray and CT chest showed a right lower lobe developing pneumonia versus atelectasis. CTA was negative for PE. CT chest did also show emphysema. Patient was admitted for pneumonia. Pneumonia with acute hypoxic respiratory failure We will continue with ceftriaxone and doxycycline Continue oxygen supplement Incentive spirometer Emphysema and CT chest/asthma We will place the patient on DuoNebs every 6 hours Plan/VTE VTE Prophylaxis Ordered?: Yes VS, I&O, 24H, Fishbone Vital Signs/I&O Vital Signs Date Time Temp Pulse Resp B/P (MAP) Pulse Ox O2 Delivery O2 Flow Rate FiO2 03/29/21 10:08 97 Nasal Cannula 3.0 03/29/21 06:00 97.1 78 16 112/71 (85) I&O- Last 24 Hours up to 6 AM 03/29/21 05:59 Intake Total 150 ml Output Total 300 ml Balance -150 ml Laboratory Data 24H LABS Laboratory Tests 2 03/28/21 18:05: Prothrombin Time 15.5H, Prothromb Time International Ratio 1.18, Activated Partial Thromboplast Time 33.1, Anion Gap 4L, Glomerular Filtration Rate > 60.0, Calcium Level 9.6, Total Bilirubin 0.4, Direct Bilirubin 0.2, Aspartate Amino Transf (AST/SGOT) 20, Alanine Aminotransferase (ALT/SGPT) 16, Alkaline Phosphatase 79, Total Creatine Kinase 199, Creatine Kinase MB 3.1, Creatine Анна se MB Relative Index 1.56, Troponin I < 0.02, RL-Rgl-Q-Type Natriuretic Peptide 268H, Total Protein 8.1, Albumin 3.0L, Albumin/Globulin Ratio 0.6, Procalcitonin 0.08, Thyroid Stimulating Hormone (TSH) 1.430, Thyroxine (T4) 8.9 03/28/21 18:06: Immature Granulocyte % (Auto) 0.7, Neutrophils (%) (Auto) 71.3H, Lymphocytes (%) (Auto) 19.8L, Monocytes (%) (Auto) 7.5, Eosinophils (%) (Auto) 0.5, Basophils (%) (Auto) 0.2, Neutrophils # (Auto) 9.1H, Lymphocytes # (Auto) 2.5, Monocytes # (Auto) 1.0H, Eosinophils # (Auto) 0.1, Basophils # (Auto) 0.0, Nucleated Red Blood Cells % (auto) 0.0, Blood Gas Bicarbonate Standard 27.4, Venous Blood pH 7.347, Venous Blood Partial Pressure CO2 59.5H, Venous Blood Partial Pressure O2 35.6, Venous Blood Total Carbon Dioxide 33.7H, Venous Blood HCO3 31.9H, Venous Blood Oxygen Saturation 64.0, Venous Blood Base Excess 4.3H, Lactic Acid Level 2 .3*H 03/28/21 22:51: Lactic Acid Followup at 4 Hours 2.0 03/28/21 23:13: 03/29/21 05:21: Nucleated Red Blood Cells % (auto) 0.0, Anion Gap 4L, Glomerular Filtration Rate > 60.0, Calcium Level 8.8, Magnesium Level 1.9 CBC/BMP Laboratory Tests 03/28/21 18:05 03/28/21 18:06 03/29/21 05:21 Microbiology Microbiology 03/28/21 Blood Culture, Received Pending 03/28/21 Blood Culture, Received Pending 03/28/21 Respiratory Virus Panel (PCR) ([facility]) - Final, Complete Mable Husain MD Mar 29, 2021 10:37
[2021-03-29] MEDS: DOXYCYCLINE HYCLATE 100 MG in D5W MINI-BAG PLUS 100 ML IV SCH ×2 (11:40→23:29)
[2021-03-29 13:37] VITALS: BP 112/72
[2021-03-29] MEDS ORDERED: cefTRIAXone SOD 1 GM in D5W MINI-BAG PLUS 50 ML IV SCH (21:00)
[2021-03-29 22:00] VITALS: BP 111/72
[2021-03-30] MEDS: IPRATROPIUM 0.5MG/ALBUTEROL 2.5MG INH SOL UD 3ML (DUONEB) NEB SCH ×3 (02:00→13:11)
[2021-03-30 06:00] VITALS: BP 109/72
[2021-03-30] MEDS: guaiFENesin ER 600 MG TAB PO SCH (08:04)
[2021-03-30] MEDS: ENOXAPARIN 40MG/0.4ML SYRINGE (J1650 PER 10MG) SC SCH (08:05)
[2021-03-30 09:01] LABS: BASO % 0.3 % (0.0-1.0); EOS # 0.2 10^3/uL (0.0-0.5); EOS % 1.9 % (0.0-3.0); HEMATOCRIT 44.9 % (42.0-52.0); HEMOGLOBIN 14.1 g/dl (13.5-17.5); LYMPH # 2.7 10^3/uL (1.5-5.0); LYMPH % 23.8 % (24.0-44.0); MEAN CORPUSCULAR HEMOGLOBIN 29.5 pg (27.0-33.0); MEAN CORPUSCULAR HGB CONC 31.4 g/dl (32.0-36.5); MEAN CORPUSCULAR VOLUME 93.9 fl (80.0-96.0); MONO # 0.8 10^3/uL (0.0-0.8); MONO % 7.3 % (2.0-8.0); NEUTROPHILS # 7.4 10^3/uL (1.5-8.5); NEUTROPHILS % 65.6 % (36.0-66.0); PLATELET COUNT, AUTOMATED 302 10^3/uL (150-450); RED BLOOD COUNT 4.78 10^6/uL (4.30-6.10); WHITE BLOOD COUNT 11.2 10^3/uL (4.0-10.0)
[2021-03-30 09:17] LABS: BLOOD UREA NITROGEN 7 MG/DL (7-18); CALCIUM LEVEL 9.3 MG/DL (8.5-10.1); CARBON DIOXIDE LEVEL 27 MEQ/L (21-32); CHLORIDE LEVEL 108 MEQ/L (98-107); CREATININE FOR GFR 0.51 MG/DL (0.70-1.30); GLOMERULAR FILTRATION RATE > 60.0 (>56); GLUCOSE, FASTING 87 MG/DL (70-100); POTASSIUM SERUM 4.3 MEQ/L (3.5-5.1); SODIUM LEVEL 140 MEQ/L (136-145)
[2021-03-30] MEDS: DOXYCYCLINE HYCLATE 100 MG in D5W MINI-BAG PLUS 100 ML IV SCH (11:27)
[2021-03-30] MEDS ORDERED: cefTRIAXone SOD 1 GM in D5W MINI-BAG PLUS 50 ML IV ONE (13:00)
[2021-03-30] MEDS ORDERED: DOXY100T2 PO (13:05)
[2021-03-30] MEDS ORDERED: CEFD1CAP8 PO (13:05)
[2021-03-30] MEDS ORDERED: COMBAER6 INH (13:05)
[2021-03-30 14:09] LABS: MYCOPLASMA PNEUMONIAE IgG 665 U/mL (0-99); MYCOPLASMA PNEUMONIAE IgM <770 U/mL (0-769)
--- NOTE | 2021-03-31 21:10 | DS.PDOC ---
Discharge Summary General Date of Admission Mar 28, 2021 at 16:57 Date of Discharge 03/30/21 Discharge Summary PROCEDURES PERFORMED DURING STAY: [None]. DISCHARGE DIAGNOSES: Community acquired pneumonia Acute respiratory failure Emphysema Muscular dystrophy Heart block s/p pacemaker in 2018 COMPLICATIONS/CHIEF COMPLAINT: Pneumonia,Sepsis. HOSPITAL COURSE: This is 50yo male w/ notable PMHx of bradycardia/heart block s/p pacemaker (2018), muscular dystrophy (uses cane for ambulation, follows w/ neurology in [place]), asthma who presented to the [facility] ED on 03/28/21 with a chief complaint of intermittent episodes of shortness of breath and lightheadedness for about 10 days. About 48 hours prior to admission the patient's symptoms had significantly improved and he was feeling much better. His appetite was improving and he was in the process of making a meal in the afternoon of the day of admission when he became acutely short of breath, "gasping for air." He was breathing rapidly and bringing up yellow phlegm. So presented to the ED. In the ED, the patient was found to be hypoxic (initial SPO2 83%) and started on nasal cannula supplemental oxygen. He was also significantly tachypneic and tachycardic. Labs showed leukocytosis with left shift, lactic acid of 2.3. Negative respiratory viral panel. Chest x-ray and CT chest showed a right lower lobe developing pneumonia versus atelectasis. CTA was negative for PE. CT chest did also show emphysema. Patient was admitted for pneumonia. Pneumonia with acute hypoxic respiratory failure resp failure resolved now in room air Mycoplasma IgM not elevated. Legionella and chlamydia pending continue cefdinir and doxycycline on discharge. Emphysema and CT chest/asthma combivent DISCHARGE MEDICATIONS: Please see below. ALLERGIES: Please see below. PHYSICAL EXAMINATION ON DISCHARGE: VITAL SIGNS: Please see below. General Exam: Positive: Alert, Cooperative, No Acute Distress Eye Exam: Positive: PERRLA, Conjunctiva & lids normal, EOMI; Negative: Sclera icteric Chest Exam: Positive: Rales, Rhonchi, Other (Bilateral coarse breath sounds and crackles at the left base) Heart Exam: Positive: Rate Normal, Regular Rhythm, Normal S1, Normal S2; Negative: Gallops, Murmurs, Rubs Abdomen Exam: Positive: Normal bowel sounds, Soft; Negative: Tenderness Extremity Exam: Negative: Clubbing, Cyanosis, Edema Psych Exam: Positive: Memory Intact, Oriented x 3 LABORATORY DATA: Please see below. ACTIVITY: [As tolerated]. DIET: As tolerated DISPOSITION: 01 Home, Self-Care. DISCHARGE INSTRUCTIONS: PMD in 1 week Follow up urine legionella antigen, clamydia, urine strep pneumoniae antigen. DISCHARGE CONDITION: [Stable]. TIME SPENT ON DISCHARGE: 35 minutes. Vital Signs/I&Os Vital Signs Date Time Temp Pulse Resp B/P (MAP) Pulse Ox O2 Delivery O2 Flow Rate FiO2 03/30/21 12:04 94 Room Air 03/30/21 09:15 2.0 03/30/21 06:00 98.2 77 14 109/72 (84) I&O- Last 24 Hours up to 6 AM 03/31/21 07:00 Intake Total 300 ml Output Total 350 ml Balance -50 ml Microbiology Microbiology 03/29/21 Gram Stain - Final, Resulted 03/29/21 Sputum Culture, Resulted Pending 03/28/21 Blood Culture - Preliminary, Resulted No Growth after 72 hours. All specime... 03/28/21 Blood Culture - Preliminary, Resulted No Growth after 72 hours. All specime... 03/28/21 Respiratory Virus Panel (PCR) ([facility]) - Final, Complete Discharge Medications Scheduled Cefdinir (Cefdinir) 300 Mg Capsule, 300 MG PO BID Cholecalciferol (Vitamin D3) (Vitamin D3) 50 Mcg Capsule, 50 MCG PO DAILY, (Reported) Doxycycline Hyclate (Doxycycline Hyclate) 100 Mg Tablet, 1 TAB PO BID Ipratropium/Albuterol Sulfate (Combivent Respimat 20-100 Mcg) 4 Gm Mist.inhal, 2 PUFF INH TID Scheduled PRN Acetaminophen (Tylenol Extra Strength) 500 Mg Tablet, 1,000 MG PO Q6H PRN for HEADACHE OR MILD PAIN, (Reported) Allergies Coded Allergies: No Known Allergies (Unverified , 11/15/20) Mable Husain MD Mar 31, 2021 21:10
[2021-04-01 13:07] LABS: BODY FLUID CULTURE Not indicated. (.); LEGIONELLA ANTIGEN URINE Negative (Negative); ORGANISM ID Not indicated. (.); SPECIMEN SOURCE Urine (.); URINE STREP PNEUMONIAE ANTIGEN Negative (Negative)
[2021-04-03 14:09] LABS: CHLAMYDIA PNEUMONIAE IgM <1:10 (Neg:<1:10)
== END 2021-03-30 14:52 | disposition home or self-care (01) | DRG 193 ==
LOC: M ED 16:56 → M ED INP 16:57 → M MSPAV 22:26
PROVIDERS: ADMIT Internal Medicine; ATTEND Internal Medicine Nephrology
DX: J18.9 Pneumonia, unspecified organism (principal); J96.01 Acute respiratory failure with hypoxia; E87.2 Acidosis; J98.11 Atelectasis; R53.1 Weakness; R26.89 Other abnormalities of gait and mobility; Z95.0 Presence of cardiac pacemaker; G71.00 Muscular dystrophy, unspecified; Z87.891 Personal history of nicotine dependence; J43.9 Emphysema, unspecified; Z79.899 Other long term (current) drug therapy; Z20.822 Contact with and (suspected) exposure to COVID-19

== ENCOUNTER 2021-05-08 12:47 | Inpatient (IN) | payer OTHER ==
[~2021-05-08] VITALS: Ht 182.9 cm; Wt 77.7 kg
[~2021-05-08 12:47] MED LIST changes: +ACET-897 PO; +COMBAER6 INH; +DOXY-443 PO; +DOXY100T2 PO; -DOXY1CAP62 PO; +VITA200021 PO; +vitamin d
--- OUTSIDE RECORDS SUMMARY | 2021-05-08 12:53 | CCD ---
Author Author [facility] Organization [facility] Address Unknown Phone Unavailable Care Team Providers Care Cylinder Honer Name Role Phone Lew, L Jaquelin RPA Unavailable Unavailable Lew, L Jaquelin RPA Unavailable Unavailable Lew, L Jaquelin RPA Unavailable Unavailable Lew, L Jaquelin RPA Unavailable Unavailable Lew, L Jaquelin RPA Unavailable Unavailable Lew, L Jaquelin RPA Unavailable Unavailable Lew, L Jaquelin RPA Unavailable Unavailable Lew, L Jaquelin RPA Unavailable Unavailable Lew, L Jaquelin RPA Unavailable Unavailable Lew, L Jaquelin RPA Unavailable Unavailable Lew, L Jaquelin RPA Unavailable Unavailable Lew, L Jaquelin RPA Unavailable Unavailable Lew, L Jaquelin RPA Unavailable Unavailable Lew, L Jaquelin RPA Unavailable Unavailable Lew, L Jaquelin RPA Unavailable Unavailable Lew, L Jaquelin RPA Unavailable Unavailable Lew, L Jaquelin RPA Unavailable Unavailable Lew, L Jaquelin RPA Unavailable Unavailable Lew, L Jaquelin RPA Unavailable Unavailable Lew, L Jaquelin RPA Unavailable Unavailable Lew, L Jaquelin RPA Unavailable Unavailable Lew, L Jaquelin RPA Unavailable Unavailable Lew, L Jaquelin RPA Unavailable Unavailable Lew, L Jaquelin RPA Unavailable Unavailable Lew, L Jaquelin RPA Unavailable Unavailable Lew, L Jaquelin RPA Unavailable Unavailable Lew, L Jaquelin RPA Unavailable Unavailable Lew, L Jaquelin RPA Unavailable Unavailable Lew, L Jaquelin RPA Unavailable Unavailable Lew, L Jaquelin RPA Unavailable Unavailable Lew, L Jaquelin RPA Unavailable Unavailable Lew, L Jaquelin RPA Unavailable Unavailable Re-disclosure Warning The records that you are about to access may contain information from federally-assisted alcohol or drug abuse programs. If such information is present, then the following federally mandated warning applies: This information has been disclosed to you from records protected by federal confidentiality rules (42 CFR part 2). The federal rules prohibit you from making any further disclosure of this information unless further disclosure is expressly permitted by the written consent of the person to whom it pertains or as otherwise permitted by 42 CFR part 2. A general authorization for the release of medical or other information is NOT sufficient for this purpose. The Federal rules restrict any use of the information to criminally investigate or prosecute any alcohol or drug abuse patient.The records that you are about to access may contain highly sensitive health information, the redisclosure of which is protected by Article 27-F of the [facility] Public Health law. If you continue you may have access to information: Regarding HIV / AIDS; Provided by facilities licensed or operated by the [facility] Office of Mental Health; or Provided by the [facility] Office for People With Developmental Disabilities. If such information is present, then the following [facility] mandated warning applies: This information has been disclosed to you from confidential records which are protected by state law. State law prohibits you from making any further disclosure of this information without the specific written consent of the person to whom it pertains, or as otherwise permitted by law. Any unauthorized further disclosure in violation of state law may result in a fine or assisted sentence or both. A general authorization for the release of medical or other information is NOT sufficient authorization for further disc losure. Family History Family Member Name Family Member Gender Family Member Status Date o f Status Description Data Source(s) Unknown Unknown Problem [facility] ([facility]) Encounters Encounter Providers Location Date Indications Data Source(s ) Outpatient Attender: Jaquelin Domínguez/Sarah/Juan Pablo/Ro rashid 04/04/2021 09:00:00 AM EDT [facility] ([facility]) Medications No Information Insurance Providers Payer name Policy type / Coverage type Policy ID Covered constitution party ID Covered constitution party's relationship to [place] Policy [place] Plan Information SELF PAY ONLY [id number] SP [id number] [facility] [id number] SP [id number] [facility] I [id number] Self [id number] [facility] [id number] SP [id number] [employer] [id number] Self [id number] SELF PAY ONLY UNAVAILABLE UNAV AILABLE O UNAVAILABLE UNAVAILA BLE Self Pay Commercial [id number] Self 'S ADMINISTRATION [id number] SP [id number] SELF PAY UNAVAILABLE SP UNAVAILA BLE [employer]UM [facility] [id number] SP [id number] 18 MEDICARE [id number] SP [id number] Problems, Conditions, and Diagnoses No Information Surgeries/Procedures Procedure Description Date Indications Data Source(s) OFFICE OUTPATIENT NEW 30 MINUTES 04/04/2021 12:00:00 A M EDT [facility] ([facility]) Results ID Date Data Source [id number] 03/28/2021 05:24:00 PM EDT [facility] Name Value Range Interpretation Code Description Data Caren rce(s) Supporting Document(s) SARS-CoV-2 (COVID 19) NEGATIVE - SARS-CoV-2 (COVID19) [facility] This lab was ordered by [facility] a nd reported by [facility]. ID Date Data Source [id number] 11/15/2020 07:53:00 AM EDT [facility] Name Value Range Interpretation Code Description Data Caren rce(s) Supporting Document(s) SARS-CoV-2 (COVID 19) NEGATIVE - SARS-CoV-2 (COVID19) [facility] This lab was ordered by [facility] a nd reported by [facility]. Procedure Social History No Information Vital Signs ID Date Data Source UNK Name Value Range Interpretation Code Description Data Source(s) Systolic blood pressure 93 mm[Hg] 93 mm[facility]Hg[facility] Diastolic blood pressure 66 mm[Hg] 66 mm[Hg] [facility] ([facility]) Heart rate 82 /min 82 /min [facility] ([facility]) Body temperature 97.1 [degF] 97.1 [degF] [facility] ([facility]) Body height 72 [in_i] 72 [in_i] [facility] ([facility]) 6'0" Body weight 161.38 [lb_av] 161.38 [lb_av] [facility] Body mass index (BMI) [Ratio] 21.9 kg/m2 21.9 k g/m2 [facility] ([facility]) [place] body weight 178 [lb_av] 178 [lb_av] [facility] Body weight 73.200 kg 73.200 kg [facility] ([facility]) Body surface area Derived from formula 1.94 m2 1.94 m2 [facility] ([facility])
--- OUTSIDE RECORDS SUMMARY | 2021-05-08 12:53 | CCD | Continuity of Care Document ---
Author Author Carter FRAUSTO PA Organization Unknown Address [address], [address] [place] [address] Phone [phone] Care Team Providers Care Operating Room Technologist Name Role Phone Justin Donaldson M.D. AUTM [phone] Problems Description No Information Available Social History Type Date Description Comments Sex Unknown ETOH Use Occasionally consumes alcohol Recreational Drug Use Denies Drug Use Tobacco Use Start: Unknown End: Unknown Patient is a former smoker Allergies and adverse reactions Description No Known Drug Allergies Medications Active Medications SIG Qnty Indications Ordering Provide r Date Vitamin D (Ergocalciferol) 1.25mg (92955 Ut) Capsules 1 tab q week Unknown Cefdinir 300mg Capsules Take 1 Capsule By Mouth Twice Daily Mable Husain M.D. Doxycycline Hyclate 100mg Tablets Take 1 Tablet By Mouth Twice Daily Mable Husain M.D. Immunizations Description No Information Available Vital Signs Date Vital Result Comment 04/04/2021 9:01am BP Systolic 93 mmHg BP Diastolic 66 mmHg Heart Rate 82 /min Body Temperature 97.1 F Height 72 inches 6'0" Weight 161.38 lb BMI (Body Mass Index) 21.9 kg/m2 [place] Body Weight 178 lb Weight 73.200 kg BSA (Body Surface Area) 1.94 m2 Results Description No Information Available Procedures Date Code Description Status 04/04/2021 08865 Office/Outpatient New Low MDM 30 -44 Minutes Completed Medical Devices Description No Information Available Encounters Type Date Location Provider Dx Diagnosis Office Visit 04/04/2021 9:00a [facility] MARIBETH Desouza Z12.11 Encounter for screening for malignant ne oplasm of colon Assessments Date Code Description Provider 04/04/2021 Z12.11 Encounter for screening for fortino gnant neoplasm of colon MARIBETH De Oliveira Plan of Treatment Future Appointment(s):* 05/30/2021 10:00 am - MARIBETH De Oliveira at [facility] * 05/16/2021 10:00 am - Song Renee DO at [facility] 04/04/2021 - MARIBETH De Oliveira* Z12.11 Encounter for screening for malignant neoplasm of colon Functional Status Description No Information Available Mental Status Description No Information Available Referrals Refer to Reason for Referral Status Appt Date Armand Pal JR, MD SCHEDULE COLONOSCOPY AND EGD Scheduled 04/04/[address] [place] [id number] [phone]
[2021-05-08 14:03] LABS: BASO % 0.3 % (0.0-1.0); EOS # 0.3 10^3/uL (0.0-0.5); EOS % 2.4 % (0.0-3.0); HEMATOCRIT 46.6 % (42.0-52.0); HEMOGLOBIN 15.1 g/dl (13.5-17.5); LYMPH # 1.7 10^3/uL (1.5-5.0); LYMPH % 12.5 % (24.0-44.0); MEAN CORPUSCULAR HEMOGLOBIN 30.4 pg (27.0-33.0); MEAN CORPUSCULAR HGB CONC 32.4 g/dl (32.0-36.5); MONO # 1.2 10^3/uL (0.0-0.8); MONO % 8.9 % (2.0-8.0); NEUTROPHILS # 10.5 10^3/uL (1.5-8.5); NEUTROPHILS % 75.5 % (36.0-66.0); PLATELET COUNT, AUTOMATED 246 10^3/uL (150-450); RED BLOOD COUNT 4.96 10^6/uL (4.30-6.10); WHITE BLOOD COUNT 13.9 10^3/uL (4.0-10.0)
[2021-05-08 14:26] LABS: ALBUMIN 3.7 GM/DL (3.2-5.2); ALT/SGPT 20 U/L (12-78); BILIRUBIN,DIRECT 0.2 MG/DL (0.0-0.2); BILIRUBIN,TOTAL 0.8 MG/DL (0.2-1.0); BLOOD UREA NITROGEN 7 MG/DL (7-18); CALCIUM LEVEL 9.5 MG/DL (8.5-10.1); CARBON DIOXIDE LEVEL 28 MEQ/L (21-32); CHLORIDE LEVEL 109 MEQ/L (98-107); CREATININE FOR GFR 0.65 MG/DL (0.70-1.30); GLOMERULAR FILTRATION RATE > 60.0 (>56); GLUCOSE, FASTING 106 MG/DL (70-100); SODIUM LEVEL 142 MEQ/L (136-145); TOTAL PROTEIN 7.7 GM/DL (6.4-8.2)
[2021-05-08 14:45] LABS: RSV AMPLIFICATION NEGATIVE (NEGATIVE)
[2021-05-08] MEDS ORDERED: ISOVUE-370 76% 100ML VIAL As Ordered ONE (15:25)
[2021-05-08] MEDS ORDERED: IPRATROPIUM 0.5MG/ALBUTEROL 2.5MG INH SOL UD 3ML (DUONEB) NEB ONE ×2 (15:30→16:15)
[2021-05-08] MEDS ORDERED: methylPREDNISolone 125MG 2ML VIAL IV ONE (15:30)
--- OUTSIDE RECORDS SUMMARY | 2021-05-08 15:54 | CCD ---
Author Author [facility] Organization [facility] Address Unknown Phone Unavailable Care Team Providers Care Parking Analyst Name Role Phone Maring, Jerry PA Unavailable Unavailable Maring, Jerry PA Unavailable Unavailable Maring, Jerry PA Unavailable Unavailable Maring, Jerry PA Unavailable Unavailable Maring, Jerry PA Unavailable Unavailable Maring, Jerry PA Unavailable Unavailable Maring, Jerry PA Unavailable Unavailable Maring, Jerry PA Unavailable Unavailable Maring, Jerry PA Unavailable Unavailable Maring, Jerry PA Unavailable Unavailable Maring, Jerry PA Unavailable Unavailable Maring, Jerry PA Unavailable Unavailable Maring, Jerry PA Unavailable Unavailable Maring, Jerry PA Unavailable Unavailable Maring, Jerry PA Unavailable Unavailable Maring, Jerry PA Unavailable Unavailable Lew, L Jaquelin RPA Unavailable [...] L Jaquelin RPA Unavailable Unavailable Lew, L Ajquelin RPA Unavailable Unavailable Lew, L Jaquelin RPA [...] is protected by Article 27-F of the [facility] Public Health law. If you continue you may have access to information: Regarding HIV / AIDS; Provided by facilities licensed or operated by the [facility] Office of Mental Health; or Provided by the [facility] Office for People With Developmental Disabilities. If such information is present, then the following [facility] mandated warning applies: This information has been [...] law may result in a fine or senior living sentence or both. A general authorization for the release of medical or other information is NOT sufficient authorization for further disc losure. Family History Family Member Name Family Member Gender Family Member Status Date o f Status Description Data Source(s) Unknown Unknown Problem [facility] ([facility]) Encounters Encounter Providers Location Date Indications Data Source(s ) Outpatient Attender: Jerry STAHL 05/08/20 10:03:18 AM EST - 05/08/2021 11:53:47 AM EST [facility] ([facility] ) Outpatient Attender: Jaquelin Lew SONAL Domínguez/Sarah/Juan Pablo/Ro rashid 04/04/2021 09:00:00 AM EDT [facility] Medications No Information Insurance Providers Payer name Policy type / Coverage type Policy ID Covered green party ID Covered green party's relationship to [place] Policy [place] Plan Information [facility] [id number] SP [id number] SELF PAY ONLY [id number] SP [id number] [facility] I [id number] Self [id number] [employer] [place] [employer] [place]/ [id number] Self [id number] [employer] [place] [employer] [employer] [place] Plan/ [id number] Self [id number] MEDICARE [id number] SP [id number] [employer] [place] [id number] SP [id number] 18 'S ADMINISTRATION [id number] SP [id number] [facility] COMMUNITY PLAN [facility] [id number] SP [id number] 's Administration Commercial [id number] Self [id number] SELF PAY ONLY UNAVAILABLE UNAV AILABLE O UNAVAILABLE UNAVAILA BLE Self Pay Commercial [id number] Self SELF PAY UNAVAILABLE SP UNAVAILA BLE Problems, Conditions, and Diagnoses No Information Surgeries/Procedures Procedure Description Date Indications Data Source(s) OFFICE OUTPATIENT NEW 30 MINUTES 04/04/2021 12:00:00 A M EDT [facility] ([facility], ) Results ID Date Data Source [id number] 03/28/2021 05:24:00 PM EDT [facility] Name Value Range Interpretation Code Description Data Caren rce(s) Supporting Document(s) SARS-CoV-2 (COVID 19) NEGATIVE - SARS-CoV-2 (COVID19) [facility] This lab was ordered by [facility] a nd reported by [facility]. ID Date Data Source [id number] 11/15/2020 07:53:00 AM EDT [facility] Name Value Range Interpretation Code Description Data Caren rce(s) Supporting Document(s) SARS-CoV-2 (COVID 19) NEGATIVE - SARS-CoV-2 (COVID19) [facility] This lab was ordered by [facility] a nd reported by [facility]. Procedure Social History No Information Vital Signs ID Date Data Source UNK Name Value Range Interpretation Code Description Data Source(s) Systolic blood pressure 93 mm[Hg] 93 mm[Hg] M [facility] ([facility]) Diastolic blood pressure 66 mm[Hg] 66 mm[Hg] [facility] ([facility]) Heart rate 82 /min 82 /min [facility] ([facility]) Body temperature 97.1 [degF] 97.1 [degF] [facility] ([facility]) Body height 72 [in_i] 72 [in_i] [facility] ([facility]) 6'0" Body weight 161.38 [lb_av] 161.38 [lb_av] [facility] Body mass index (BMI) [Ratio] 21.9 kg/m2 21.9 k g/m2 [facility] ([facility]) [place] body weight 178 [lb_av] 178 [lb_av] [facility]) Body weight 73.200 kg 73.200 kg [facility] ([facility]) Body surface area Derived from formula 1.94 m2 1.94 m2 [facility] ([facility])
--- NOTE | 2021-05-08 16:00 | REP ---
INDICATION: SOB hypoxia COMPARISON: None. TECHNIQUE: CT angiography of the chest after the intravenous administration of 75 cc Isovue 370 attention pulmonary arteries. FINDINGS: There is excellent visualization of the pulmonary arterial vasculature. There are no focal filling defects identified that would be considered consistent with acute pulmonary emboli. The pulmonary arterial vasculature is unchanged from the prior exam. There is no change in appearance of the thoracic aorta. There is no evidence of an abnormality. There are no pleural or pericardial effusions. There is mediastinal and bilateral hilar adenopathy status quo. There is no significant change in the appearance of the imaged upper abdomen or imaged osseous structures. Evaluation of the lung murry shows a new development of significant debris in the bronchus intermedius and throughout multiple right lower lobe bronchioles. The lung murry are hypoexpanded. There are bibasilar patchy densities. This has improved on the left but is unchanged on the right. IMPRESSION: 1. There is no evidence of a pulmonary embolism. 2. Evidence of mucous plugging on the right as described above. This be correlated clinically with appropriate follow-up. 3. Adenopathy etiology uncertain. 4. Other findings as described above. <Electronically signed by Marty De La Cruz > 05/08/21 [id number]
[2021-05-08 16:05] LABS: ABG BASE EXCESS -1.3 (-2.0-2.0); ABG HCO3 23.8 MEQ/L (22.0-26.0); ABG O2 SATURATION 91.6 % (95.0-99.0); ABG PARTIAL PRESSURE O2 61.4 mmHg (75.0-100.0); ABG STANDARD HCO3 23.3 MEQ/L (22.0-26.0); ABG pH (ARTERIAL) 7.381 UNITS (7.350-7.450)
[2021-05-08] MEDS ORDERED: VANCOMYCIN HCL 1,000 MG, VIAL MATE ADAPTER 1 EACH in NS 250 ML IV ONE (16:05)
[2021-05-08] MEDS ORDERED: PIPERACILLIN/TAZOBACTAM SOD 4.5 GM in D5W MINI-BAG PLUS 50 ML IV ONE (16:05)
[2021-05-08] MEDS ORDERED: VITMTA PO (16:21)
[2021-05-08] MEDS ORDERED: HOME MED LIST COMPLETE! XX SCH (16:25)
[2021-05-08] MEDS ORDERED: ACETAMINOPHEN TAB 650MG DOSE (2X325MG) PO PRN (17:50)
--- NOTE | 2021-05-08 18:13 | ECGEPIP ---
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
--- NOTE | 2021-05-08 18:14 | HPEPDOC ---
[facility] Medical History & Physical Date of Admission May 08, 2021 Date of Service: May 08, 2021 Attending Physician: ENEDELIA SNEED MD History and Physical CHIEF COMPLAINT: Shortness of breath HISTORY OF PRESENT ILLNESS: Patient is a 50-year-old male recently hospitalized for community-acquired pneumonia and COPD who presents with a 3-day history of progressively worsening shortness of breath cough productive of yellow/green sputum and nasal/chest congestion. He states he has not had his albuterol or Advair in the last 2 months and was recently hospitalized a month ago for pneumonia. He has not followed up with his outpatient provider since then and has not requested a refill of his medications either. He denies any fever, chills, chest pain/pressure, abdominal pain, nausea, vomiting, dysuria, melena, hematochezia, lower extremity swelling or edema. 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 Drinks alcohol occasionally Previously smoked marijuana, but currently denies any marijuana, heroin, PCP, cocaine use FAMILY HISTORY: Reviewed, noncontributory. ALLERGIES: Please see below. REVIEW OF SYSTEMS: Constitutional: Denies fevers, chills, night sweats, or recent unexpected weight change HEENT: Denies headaches, head trauma, no visual changes or eye pain, denies nosebleeds or difficulty swallowing. Cardiovascular: Denies chest pain, palpitations, or orthopnea. Respiratory: As above GI: Denies nausea, vomiting, abdominal pain, diarrhea, or constipation : Denies pain with urination or frequency Musculoskeletal: Denies joint pain or swelling Neuro/psych: Denies muscle weakness or sensory loss Skin: Denies skin rashes 10 point ROS complete; all negative otherwise stated above HOME MEDICATIONS: Please see below. PHYSICAL EXAMINATION: VITAL SIGNS: See below GENERAL APPEARANCE: Short of breath appearing male sitting upright in bed with nonrebreather in place speaking in complete sentences in no acute distress using supraclavicular muscles of respiration. HEENT: NC, AT, EOMI, no scleral icterus, moist mucous membranes, no pharyngeal erythema. CARDIOVASCULAR: RRR, normal S1-S2. No murmurs, gallops, rubs. LUNGS: Diminished breath sounds bilaterally with shortened inspiratory and expiratory phase and significant rhonchi and transmitted upper airway sounds throughout but does not go away even with a cough. End expiratory/inspiratory wheezing bilaterally, positive rhonchi, no crackles. ABDOMEN: Soft, nontender, nondistended, bowel sounds present. No hepatosplenomegaly. EXTREMITIES: No swelling or edema NEUROLOGICAL: No focal or sensory deficits. CN II-XII grossly intact. PSYCHIATRIC: Normal mood and affect LABORATORY DATA: See below. IMAGIN05/08/2021 CT angiogram chest: "Evaluation of the lung murry shows a new development of significant debris in the bronchus intermedius and throughout multiple right lower lobe bronchioles. The lung murry are hypoexpanded. There are bibasilar patchy densities. This has improved on the left but is unchanged on the right. IMPRESSION: 1. There is no evidence of a pulmonary embolism. 2. Evidence of mucous plugging on the right as described above. This be correlated clinically with appropriate follow-up. 3. Adenopathy etiology uncertain. 4. Other findings as described above." MICROBIOLOGY: Please see below. Assessment/Plan: #. Acute hypoxic respiratory failure 2/2 COPD exacerbation -The patient denies any history of asthma, COPD, emphysema it seems likely based on his prior history of using albuterol and Advair that he has a diagnosis of COPD and we will treat it as such. -Patient seemed to improve on nonrebreather and had been weaned down to 10 L at 50% FiO2 while we were in the room and tolerating this therapy adequately -DuoNeb treatments, IV Solu-Medrol, pulmonary toilet -Restarting Advair, albuterol inhaler once discharged #. ?CAP -Not convinced this is truly CAP, elevated WBC count but remaining symptoms consistent with COPD, will also order procalcitonin, lactic acid. -Vanc/Zosyn changed to Rocephin and doxy for community coverage -Trending blood culture, sputum culture. #. Muscular dystrophy -Takes no medications for this, uses a walker at home #.Elevated troponin -Likely type2 if it continues to rise, patient not complaining of chest pain/discomfort -EKG unchanged from baseline, does appear to have baseline LBBB DVT prophylaxis: Lovenox Disposition: Inpatient expect at least 2 midnight CODE status: Full code Vital Signs Vital Signs Date Time Temp Pulse Resp B/P (MAP) Pulse Ox O2 Delivery O2 Flow Rate FiO2 05/08/21 16:53 20 05/08/21 16:32 Non-Rebreather 10.0 05/08/21 15:55 93 50 05/08/21 12:47 98.7 130 111/71 (84) Laboratory Data Labs 24H Laboratory Tests 2 05/08/21 13:38: POC Troponin I (Misc) 0.02 05/08/21 13:41: Immature Granulocyte % (Auto) 0.4, Neutrophils (%) (Auto) 75.5H, Lymphocytes (%) (Auto) 12.5L, Monocytes (%) (Auto) 8.9H, Eosinophils (%) (Auto) 2.4, Basophils (%) (Auto) 0.3, Neutrophils # (Auto) 10.5H, Lymphocytes # (Auto) 1.7, Monocytes # (Auto) 1.2H, Eosinophils # (Auto) 0.3, Basophils # (Auto) 0.0, Nucleated Red Blood Cells % (auto) 0.0, Anion Gap 5L, Glomerular Filtration Rate > 60.0, Calcium Level 9.5, Total Bilirubin 0.8, Direct Bilirubin 0.2, Aspartate Amino Transf (AST/SGOT) 17, Alanine Aminotransferase (ALT/SGPT) 20, Alkaline Phosphatase 101, Total Protein 7.7, Albumin 3.7, Albumin/Globulin Ratio 0.9 05/08/21 13:56: Coronavirus (COVID-19)(PCR) NEGATIVE, Influenza Type A (RT-PCR) NEGATIVE, Influenza Type B (RT-PCR) NEGATIVE, Respiratory Syncytial Virus (PCR) NEGATIVE 05/08/21 15:47: Blood Gas Bicarbonate Standard 23.3, Arterial Blood pH 7.381, Arterial Blood Partial Pressure CO2 41.0, Arterial Blood Partial Pressure O2 61.4L, Arterial Blood Total CO2 25.0, Arterial Blood HCO3 23.8, Arterial Blood Base Excess -1.3, Arterial Blood Oxygen Saturation 91.6L CBC/BMP Laboratory Tests 05/08/21 13:41 Home Medications Scheduled Multivitamins (Thera M Plus Tablet) 1 Each Tablet, 1 TAB PO DAILY Allergies Coded Allergies: No Known Allergies (Unverified , 11/15/20) GME ATTESTATION GME ATTESTATION My faculty preceptor for this patient encounter was physically present during the encounter and was fully available. All aspects of the patient interview, examination, medical decision making process, and medical care plan development were reviewed and approved by the faculty preceptor. The faculty preceptor is aware and concurs with the plan as stated in the body of this note and will attest to such by his/her cosignature. ATTENDING NOTE I, Enedelia Sneed, have independently examined this patient and performed my own physical exam, as well as reviewed the documentation and edited where necessary with the resident. For medical students we have performed the physical exam together and discussed medical decision making and I have verified the history. I have discussed in detail with the resident / student the findings and plan of treatment as documented by the resident / student and edited their note. I agree with their findings and treatment plan and have edited their documentation. I will continue to follow the patient during this hospital stay. SHEBA CALDERON DO May 08, 2021 18:14 ENEDELIA SNEED MD May 08, 2021 20:15
[2021-05-08] MEDS: IPRATROPIUM 0.5MG/ALBUTEROL 2.5MG INH SOL UD 3ML (DUONEB) NEB SCH (20:00)
--- OUTSIDE RECORDS SUMMARY | 2021-05-08 20:28 | CCD ---
Author Author [facility] Organization [facility] Address Unknown Phone Unavailable Care Team Providers Care Household Appliance Installer Name Role Phone Maring, Jerry PA Unavailable [...] is protected by Article 27-F of the [place] Public Health law. If you continue you may have access to information: Regarding HIV / AIDS; Provided by facilities licensed or operated by the [place] Office of Mental Health; or Provided by the [place] Office for People With Developmental Disabilities. If such information is present, then the following [place] mandated warning applies: This information has [...] law may result in a fine or longterm sentence or both. A general authorization for [...] EST - 05/08/2021 11:53:47 AM EST [facility] ([facility] ) Outpatient Attender: Jaquelin Lew SONAL Domínguez/Sarah/Juan Pablo/Ro rashid 04/04/2021 09:00:00 AM EDT [facility] Medications No Information Insurance Providers Payer name Policy type / Coverage type Policy ID Covered constitution party ID Covered constitution party's relationship to [place] Policy [place] Plan Information SELF PAY ONLY [id number] SP [id number] [facility] [id number] [facility] I [id number] Self [id number] [employer] [place] [employer] [place]/ [id number] Self [id number] [employer] [place] [employer] [place]/ [id number] Self [id number] SELF PAY ONLY UNAVAILABLE UNAV AILABLE O UNAVAILABLE UNAVAILA BLE Self Pay Commercial [id number] Self 'S ADMINISTRATION [id number] SP [id number] SELF PAY UNAVAILABLE SP UNAVAILA BLE [employer] [place] [id number] SP [id number] MEDICARE [id number] SP [id number] [facility]LY [facility] [place] [id number] 's Administration Commercial [id number] Self [id number] Problems, Conditions, and Diagnoses No Information Surgeries/Procedures Procedure Description Date Indications Data Source(s) OFFICE OUTPATIENT NEW 30 MINUTES 04/04/2021 12:00:00 A M EDT [facility] ([facility], ) Results ID Date Data Source [id number] 03/28/2021 05:24:00 PM EDT [facility] Name Value Range Interpretation Code Description Data Caren rce(s) Supporting Document(s) SARS-CoV-2 (COVID 19) NEGATIVE - SARS-CoV-2 (COVID19) [facility] This lab was ordered by [facility] a nd reported by [facility]. ID Date Data Source [id number] 11/15/2020 07:53:00 AM EDT [facility] Name Value Range Interpretation Code Description Data Caren rce(s) Supporting Document(s) SARS-CoV-2 (COVID 19) NEGATIVE - SARS-CoV-2 (COVID19) [facility] This lab was ordered by [facility] a nd reported by [facility]. Procedure Social History No Information Vital Signs ID Date Data Source UNK Name Value Range Interpretation Code Description Data Source(s) Diastolic blood pressure 66 mm[Hg] 66 mm[Hg] [facility] ([facility]) Heart rate 82 /min 82 /min [facility] ([facility]) Body temperature 97.1 [degF] 97.1 [degF] [facility] ([facility]) Body height 72 [in_i] 72 [in_i] [facility] ([facility]) 6'0" Body weight 161.38 [lb_av] 161.38 [lb_av] [facility] Body mass index (BMI) [Ratio] 21.9 kg/m2 21.9 k g/m2 [facility] ([facility]) [place] body weight 178 [lb_av] 178 [lb_av] [facility] ([facility]) Body weight 73.200 kg 73.200 kg [facility] ([facility]) Body surface area Derived from formula 1.94 m2 1.94 m2 [facility] ([facility]) Systolic blood pressure 93 mm[Hg] 93 mm[Hg] [facility])
[2021-05-08] MEDS: ADVAIR HFA 230/21MCG INHALER INH SCH (20:51)
[2021-05-08] MEDS: DOXYCYCLINE HYCLATE 100 MG in D5W MINI-BAG PLUS 100 ML IV SCH (21:14)
[2021-05-08] MEDS: guaiFENesin ER 600 MG TAB PO SCH (21:18)
[2021-05-08] MEDS: cefTRIAXone SOD 1 GM in D5W MINI-BAG PLUS 50 ML IV SCH (22:21)
[2021-05-09] VITALS (10 sets, daily range): BP systolic 107–120; BP diastolic 61–69; O2SAT 93–98
[2021-05-09] MEDS: methylPREDNISolone 125MG 2ML VIAL IV SCH ×3 (01:18→16:56)
[2021-05-09] MEDS: IPRATROPIUM 0.5MG/ALBUTEROL 2.5MG INH SOL UD 3ML (DUONEB) NEB SCH ×4 (02:41→20:36)
[2021-05-09 08:32] LABS: HEMATOCRIT 47.3 % (42.0-52.0); HEMOGLOBIN 15.1 g/dl (13.5-17.5); MEAN CORPUSCULAR HEMOGLOBIN 30.1 pg (27.0-33.0); MEAN CORPUSCULAR HGB CONC 31.9 g/dl (32.0-36.5); MEAN CORPUSCULAR VOLUME 94.4 fl (80.0-96.0); PLATELET COUNT, AUTOMATED 270 10^3/uL (150-450); RED BLOOD COUNT 5.01 10^6/uL (4.30-6.10); WHITE BLOOD COUNT 9.8 10^3/uL (4.0-10.0)
[2021-05-09 09:00] LABS: BLOOD UREA NITROGEN 10 MG/DL (7-18); CALCIUM LEVEL 9.8 MG/DL (8.5-10.1); CARBON DIOXIDE LEVEL 29 MEQ/L (21-32); CHLORIDE LEVEL 105 MEQ/L (98-107); GLOMERULAR FILTRATION RATE > 60.0 (>56); GLUCOSE, FASTING 157 MG/DL (70-100); POTASSIUM SERUM 4.2 MEQ/L (3.5-5.1); SODIUM LEVEL 138 MEQ/L (136-145)
[2021-05-09] MEDS: ENOXAPARIN 40MG/0.4ML SYRINGE (J1650 PER 10MG) SC SCH (09:29)
[2021-05-09] MEDS: guaiFENesin ER 600 MG TAB PO SCH ×2 (09:29→21:39)
[2021-05-09] MEDS: DOXYCYCLINE HYCLATE 100 MG in D5W MINI-BAG PLUS 100 ML IV SCH ×2 (09:29→21:39)
[2021-05-09] MEDS: ADVAIR HFA 230/21MCG INHALER INH SCH ×2 (09:39→20:36)
--- NOTE | 2021-05-09 10:13 | IPNPDOC ---
Text Note Date of Service The patient was seen on 05/09/21. NOTE Subjective: No acute events overnight. Patient states he feels like he is 50% better in terms of his breathing, states his chest congestion is unchanged but feels like the chest PT has been helping. Denies any fever, chills, chest pain, abdominal pain, nausea, vomiting. Objective: VITAL SIGNS: See below GENERAL APPEARANCE: Short of breath appearing male sitting upright in bed with nonrebreather in place speaking in complete sentences in no acute distress without use of accessory muscles of respiration. HEENT: NC, AT, EOMI, no scleral icterus, moist mucous membranes, no pharyngeal erythema. CARDIOVASCULAR: RRR, normal S1-S2. No murmurs, gallops, rubs. LUNGS: Diminished breath sounds bilaterally but less than yesterday with end expiratory/inspiratory wheezing bilaterally, positive rhonchi, no crackles. ABDOMEN: Soft, nontender, nondistended, bowel sounds present. EXTREMITIES: No swelling or edema NEUROLOGICAL: No focal or sensory deficits. CN II-XII grossly intact. PSYCHIATRIC: Normal mood and affect Assessment/Plan: #. Acute hypoxic respiratory failure 2/2 COPD exacerbation -The patient denies any history of asthma, COPD, emphysema it seems likely based on his prior history of using albuterol and Advair that he has a diagnosis of COPD and we will treat it as such. -Still on Ventimask at 10 L at 50% FiO2 -DuoNeb treatments, IV Solu-Medrol, pulmonary toilet -Restarting Advair, albuterol inhaler once discharged #. CAP -White blood cell count trending down, pro calcitonin 0.27, lactic acid WNL -Continue Rocephin/doxy (end date 05/14) -Trending blood culture, sputum culture. #. Muscular dystrophy -Takes no medications for this, uses a walker at home #.Elevated troponin -Likely type2 if it continues to rise, patient not complaining of chest p ain/discomfort -EKG unchanged from baseline, does appear to have baseline LBBB DVT prophylaxis: Lovenox Disposition: Pending clinical improvement CODE status: Full code VS,Fishbone, I+O VS, Fishbone, I+O Laboratory Tests 05/08/21 13:41 05/09/21 08:07 Vital Signs Date Time Temp Pulse Resp B/P (MAP) Pulse Ox O2 Delivery O2 Flow Rate FiO2 05/09/21 10:02 89 98 Venturi Mask 50 05/09/21 10:01 119/65 (83) 05/09/21 09:42 23 05/08/21 16:32 10.0 05/08/21 12:47 98.7 I&O- Last 24 Hours up to 6 AM 05/09/21 06:00 Intake Total 150 ml Balance 150 ml GME ATTESTATION GME ATTESTATION My faculty preceptor for this patient encounter was physically present during the encounter and was fully available. All aspects of the patient interview, examination, medical decision making process, and medical care plan development were reviewed and approved by the faculty preceptor. The faculty preceptor is aware and concurs with the plan as stated in the body of this note and will attest to such by his/her cosignature. ATTENDING NOTE I, Enedelia Sneed, have independently examined this patient and performed my own physical exam, as well as reviewed the documentation and edited where necessary with the resident. For medical students we have performed the physical exam together and discussed medical decision making and I have verified the history. I have discussed in detail with the resident / student the findings and plan of treatment as documented by the resident / student and edited their note. I agree with their findings and treatment plan and have edited their documentation. I will continue to follow the patient during this hospital stay. SHEBA CALDERON DO May 09, 2021 10:12 ENEDELIA SNEED MD May 09, 2021 10:37
[2021-05-09] MEDS: cefTRIAXone SOD 1 GM in D5W MINI-BAG PLUS 50 ML IV SCH (23:22)
[2021-05-10] VITALS (12 sets, daily range): BP systolic 105–116; BP diastolic 60–63; O2SAT 92–99
[2021-05-10] MEDS: methylPREDNISolone 125MG 2ML VIAL IV SCH (00:48)
[2021-05-10] MEDS: IPRATROPIUM 0.5MG/ALBUTEROL 2.5MG INH SOL UD 3ML (DUONEB) NEB SCH ×2 (02:00→07:26)
[2021-05-10 06:38] LABS: BLOOD UREA NITROGEN 12 MG/DL (7-18); CALCIUM LEVEL 9.5 MG/DL (8.5-10.1); CARBON DIOXIDE LEVEL 26 MEQ/L (21-32); CHLORIDE LEVEL 108 MEQ/L (98-107); CREATININE FOR GFR 0.67 MG/DL (0.70-1.30); GLOMERULAR FILTRATION RATE > 60.0 (>56); GLUCOSE, FASTING 153 MG/DL (70-100); POTASSIUM SERUM 5.6 MEQ/L (3.5-5.1); SODIUM LEVEL 138 MEQ/L (136-145)
[2021-05-10 07:00] LABS: HEMOGLOBIN 14.3 g/dl (13.5-17.5); MEAN CORPUSCULAR HGB CONC 31.8 g/dl (32.0-36.5); MEAN CORPUSCULAR VOLUME 94.5 fl (80.0-96.0); PLATELET COUNT, AUTOMATED 261 10^3/uL (150-450); RED BLOOD COUNT 4.76 10^6/uL (4.30-6.10)
[2021-05-10] MEDS: ADVAIR HFA 230/21MCG INHALER INH SCH (07:26)
[2021-05-10] MEDS ORDERED: predniSONE 20 MG TAB PO SCH (09:00)
[2021-05-10] MEDS ORDERED: HumuLIN R (REGULAR) INSULIN (NovoLIN R) **100U/ML** PER UNIT IV STA (09:11)
[2021-05-10] MEDS ORDERED: DEXTROSE 50% 50 ML SYRINGE IV STA (09:11)
[2021-05-10] MEDS ORDERED: CALCIUM CHLORIDE 10% 1 GM in D5W 100 ML IV ONE (09:15)
[2021-05-10] MEDS: ENOXAPARIN 40MG/0.4ML SYRINGE (J1650 PER 10MG) SC SCH (09:32)
[2021-05-10] MEDS: guaiFENesin ER 600 MG TAB PO SCH (09:32)
[2021-05-10] MEDS: DOXYCYCLINE HYCLATE 100 MG in D5W MINI-BAG PLUS 100 ML IV SCH (09:32)
[2021-05-10] MEDS ORDERED: SOD POLYSTYRENE SULFONATE SUSP 15 GM/60 ML UD PO ONE (10:00)
[2021-05-10 10:02] LABS: BLOOD UREA NITROGEN 15 MG/DL (7-18); CALCIUM LEVEL 10.1 MG/DL (8.5-10.1); CARBON DIOXIDE LEVEL 30 MEQ/L (21-32); CHLORIDE LEVEL 106 MEQ/L (98-107); CREATININE FOR GFR 0.67 MG/DL (0.70-1.30); GLOMERULAR FILTRATION RATE > 60.0 (>56); GLUCOSE, FASTING 156 MG/DL (70-100); MAGNESIUM LEVEL 2.8 MG/DL (1.8-2.4); POTASSIUM SERUM 5.1 MEQ/L (3.5-5.1); SODIUM LEVEL 140 MEQ/L (136-145)
[2021-05-10] MEDS ORDERED: PROAAER10 INH (10:21)
[2021-05-10] MEDS ORDERED: CEFD300CAP PO (10:21)
[2021-05-10] MEDS ORDERED: PRED10TA2 PO (10:21)
[2021-05-10] MEDS ORDERED: MUCI600T31 PO (10:21)
[2021-05-10] MEDS ORDERED: DOXY-350 PO (10:21)
[2021-05-10] MEDS ORDERED: ADV250INH INH (10:21)
--- NOTE | 2021-05-10 12:00 | DS.PDOC ---
Discharge Summary General Date of Admission May 08, 2021 at 20:10 Date of Discharge 05/10/21 Attending Physician: ENEDELIA SNEED MD Discharge Summary PROCEDURES PERFORMED DURING STAY: None. ADMITTING/DISCHARGE DIAGNOSES: Acute hypoxic respiratory failure 2/2 COPD exacerbation Community acquired pneumonia Muscular dystrophy (follows w/ [facility]) Hx of complete heart block s/p pacemaker placement COMPLICATIONS/CHIEF COMPLAINT: Dyspnea. HISTORY OF PRESENT ILLNESS: Patient is a 50-year-old male recently hospitalized for community-acquired pneumonia and COPD who presents with a 3-day history of progressively worsening shortness of breath cough productive of yellow/green sputum and nasal/chest congestion. He states he has not had his albuterol or Advair in the last 2 months and was recently hospitalized a month ago for pneumonia. He has not followed up with his outpatient provider since then and has not requested a refill of his medications either. He denies any fever, chills, chest pain/pressure, abdominal pain, nausea, vomiting, dysuria, melena, hematochezia, lower extremity swelling or edema. HOSPITAL COURSE: Patient was started of IV steroids, duoneb treatments, and IV antibiotics to cover for CAP. He improved over subsequent days with treatment as his oxygen requirements decreased. He was discharged home with an albuterol inhaler, advair, doxycycline, and cefdinir with instructions to follow up with PCP and get formal testing for COPD/asthma. Patient was ambulated in the hallway with PT and did well saturating 90-93% at the lowest during a lap around the unit without any shortness of breath. DISCHARGE MEDICATIONS: Please see below. ALLERGIES: Please see below. PHYSICAL EXAMINATION ON DISCHARGE: VITAL SIGNS: See below GENERAL APPEARANCE: Well appearing male sitting upright in bed in no acute distress HEENT: NC, AT, EOMI, no scleral icterus, moist mucous membranes, no pharyngeal erythema. CARDIOVASCULAR: RRR, normal S1-S2. No murmurs, gallops, rubs. LUNGS: CTAB with some mild rhonchi throughout lungs, no wheezing or crackles. ABDOMEN: Soft, nontender, nondistended, bowel sounds present. EXTREMITIES: No swelling or edema NEUROLOGICAL: No focal or sensory deficits. CN II-XII grossly intact. PSYCHIATRIC: Normal mood and affect LABORATORY DATA: Please see below. IMAGIN05/08/2021 CT angiogram chest: "Evaluation of the lung murry shows a new development of significant debris in the bronchus intermedius and throughout multiple right lower lobe bronchioles. The lung murry are hypoexpanded. There are bibasilar patchy densities. This has improved on the left but is unchanged on the right. IMPRESSION: 1. There is no evidence of a pulmonary embolism. 2. Evidence of mucous plugging on the right as described above. This be correlated clinically with appropriate follow-up. 3. Adenopathy etiology uncertain. 4. Other findings as described above." PROGNOSIS: good ACTIVITY: As tolerated. DIET: COPD diet DISCHARGE PLAN: home DISCHARGE INSTRUCTIONS: 1. Please return to hospital if symptoms worsen, please complete antibiotic regimen, and follow up with PCP in the next 7 days. Please undergo formal evaluation for COPD/asthma. ITEMS TO FOLLOWUP ON ON OUTPATIENT: 1. PFTs, spirometry DISCHARGE CONDITION: Stable. TIME SPENT ON DISCHARGE: 33 minutes. Vital Signs/I&Os Vital Signs Date Time Temp Pulse Resp B/P (MAP) Pulse Ox O2 Delivery O2 Flow Rate FiO2 05/10/21 08:00 96.7 80 18 110/63 (79) 92 Room Air 05/10/21 07:00 4.0 05/09/21 17:00 50 I&O- Last 24 Hours up to 6 AM 05/10/21 06:00 Intake Total 250 ml Output Total 0 ml Balance 250 ml Laboratory Data Labs 24H Laboratory Tests 2 05/10/21 06:12: Anion Gap 4L, Glomerular Filtration Rate > 60.0, Calcium Level 9.5 05/10/21 06:18: Nucleated Red Blood Cells % (auto) 0.0 05/10/21 08:29: Anion Gap 4L, Glomerular Filtration Rate > 60.0, Calcium Level 10.1, Magnesium Level 2.8H 05/10/21 11:28: CBC/BMP Laboratory Tests 05/10/21 06:12 05/10/21 06:18 05/10/21 08:29 Microbiology Microbiology 05/08/21 Blood Culture - Preliminary, Resulted No growth after 24 hours . All specim... 05/08/21 Blood Culture - Preliminary, Resulted No growth after 24 hours . All specim... Discharge Medications Scheduled Cefdinir (Cefdinir) 300 Mg Capsule, 1 CAP PO BID Doxycycline Monohydrate (Doxycycline) 100 Mg Capsule, 1 CAP PO BID Guaifenesin (Mucinex) 600 Mg Tab.er.12h, 1 TAB PO BID for cough Multivitamins (Thera M Plus Tablet) 1 Each Tablet, 1 TAB PO DAILY, (Reported) Prednisone (Prednisone) 10 Mg Tablet, 10 MG PO TAPER Take 4 tabs daily x 3 days, then 3 tabs daily x 3 days, then 2 tabs daily x 3 days, then 1 tab daily x 3 days and stop Salmeterol/Fluticasone (Advair 250-50 Diskus) 1 Each Blst.w.dev, 1 PUFF INH BID Scheduled PRN Albuterol Sulfate (Proair Hfa) 8.5 Gm Hfa.aer.ad, 2 PUFF INH Q4-6HP PRN for wheezing Allergies Coded Allergies: No Known Allergies (Unverified , 11/15/20) GME ATTESTATION GME ATTESTATION My faculty preceptor for this patient encounter was physically present during the encounter and was fully available. All aspects of the patient interview, examination, medical decision making process, and medical care plan development were reviewed and approved by the faculty preceptor. The faculty preceptor is aware and concurs with the plan as stated in the body of this note and will attest to such by his/her cosignature. ATTENDING NOTE I, Enedelia Sneed, have independently examined this patient and performed my own physical exam, as well as reviewed the documentation and edited where necessary with the resident. For medical students we have performed the physical exam together and discussed medical decision making and I have verified the history. I have discussed in detail with the resident / student the findings and plan of treatment as documented by the resident / student and edited their note. I agree with their findings and treatment plan and have edited their documentation. I will continue to follow the patient during this hospital stay. Time spent on discharge 35 minutes SHEBA CALDERON DO May 10, 2021 12:00 ENEDELIA SNEED MD May 10, 2021 13:17
[2021-05-10 12:34] LABS: BLOOD UREA NITROGEN 14 MG/DL (7-18); CALCIUM LEVEL 10.2 MG/DL (8.5-10.1); CARBON DIOXIDE LEVEL 26 MEQ/L (21-32); CHLORIDE LEVEL 105 MEQ/L (98-107); CREATININE FOR GFR 0.78 MG/DL (0.70-1.30); GLOMERULAR FILTRATION RATE > 60.0 (>56); GLUCOSE, FASTING 239 MG/DL (70-100); POTASSIUM SERUM 4.7 MEQ/L (3.5-5.1); SODIUM LEVEL 139 MEQ/L (136-145)
--- NOTE | 2021-05-11 09:35 | ECGEPIP ---
[facility] Test Date: 2021-05-10 Pat Name: CHOLO ROMERO Department: Room: [place] [address] Gender: Male Resident Care Coordinator: MAKAYLA : 1970 Requested By: SHEBA CALDERON Order Number: [id number] Reading MD: Delroy Koch Measurements Intervals Rover Rate: 83 P: 99 SC: QRS: -60 QRSD: 166 T: 111 QT: 454 QTc: 533 Interpretive Statements underlying sinus rhythm with isolated PVC Dual-chamber pacemaker with appropriate atrial sensing and tracking with consistent ventricular pacing Paced QRS complexes having leftward axis and LEFT BUNDLE BRANCH BLOCK configuration in keeping with RV apical stimulation. No change from 05/08/21 Electronically Signed on 05-11-2021 9:35:24 EST by Delroy Koch
--- NOTE | 2021-05-11 10:00 | ED PDOC ---
Post-Departure Follow-Up radiology report faxed to Zeeshan Bowman Sarah MD May 11, 2021 10:00
== END 2021-05-10 13:42 | disposition home or self-care (01) | DRG 189 ==
LOC: M ED 12:47 → M ED INP 20:10 → M PCU 05-09 14:48
PROVIDERS: ADMIT Internal Medicine; ATTEND Internal Medicine
DX: J96.01 Acute respiratory failure with hypoxia (principal); J18.9 Pneumonia, unspecified organism; J44.1 Chronic obstructive pulmonary disease with (acute) exacerbation; G71.00 Muscular dystrophy, unspecified; R74.01 Elevation of levels of liver transaminase levels; Z20.822 Contact with and (suspected) exposure to COVID-19; Z95.0 Presence of cardiac pacemaker; I44.7 Left bundle-branch block, unspecified

== ENCOUNTER → 2022-02-11 | Outpatient (CLI) | payer OTHER ==
[~2022-02-11] MED LIST changes: +ADV250INH INH; -CEFD1CAP8 PO; +CEFD300C41 PO; +CEFD300CAP PO; +DOXY-350 PO; +MUCI600T31 PO; +PRED10TA2 PO; +PROAAER10 INH; +VITMTA PO
== END ==
LOC: M PLARAD 13:17
PROVIDERS: ATTEND Hospitalist
DX: R91.8 Other nonspecific abnormal finding of lung field (principal); R93.5 Abnormal findings on diagnostic imaging of other abdominal regions, including retroperitoneum
CPT/HCPCS: 78815; A9552

== ENCOUNTER 2022-04-15 19:11 | Emergency (ER) | payer OTHER ==
[~2022-04-15] VITALS: Ht 182.9 cm; Wt 79.5 kg
[2022-04-15 19:13] VITALS: BP 103/59
[2022-04-15 20:14] LABS: BASO % 0.4 % (0.0-1.0); EOS % 0.1 % (0.0-3.0); HEMATOCRIT 47.3 % (42.0-52.0); HEMOGLOBIN 15.1 g/dl (13.5-17.5); LYMPH # 0.6 10^3/uL (1.5-5.0); MEAN CORPUSCULAR HEMOGLOBIN 29.6 pg (27.0-33.0); MEAN CORPUSCULAR HGB CONC 31.9 g/dl (32.0-36.5); MEAN CORPUSCULAR VOLUME 92.7 fl (80.0-96.0); MONO % 20.2 % (2.0-8.0); NEUTROPHILS # 6.2 10^3/uL (1.5-8.5); NEUTROPHILS % 71.9 % (36.0-66.0); PLATELET COUNT, AUTOMATED 244 10^3/uL (150-450); WHITE BLOOD COUNT 8.6 10^3/uL (4.0-10.0)
[2022-04-15 20:25] LABS: MONO # 1.7 10^3/uL (0.0-0.8)
[2022-04-15 20:37] LABS: BLOOD UREA NITROGEN 8 MG/DL (7-18); CALCIUM LEVEL 9.1 MG/DL (8.5-10.1); CARBON DIOXIDE LEVEL 30 MEQ/L (21-32); CHLORIDE LEVEL 103 MEQ/L (98-107); CREATININE FOR GFR 0.76 MG/DL (0.70-1.30); GLOMERULAR FILTRATION RATE > 60.0 (>56); GLUCOSE, FASTING 93 MG/DL (70-100); POTASSIUM SERUM 4.1 MEQ/L (3.5-5.1); SODIUM LEVEL 137 MEQ/L (136-145)
[2022-04-15 20:39] LABS: INR 1.15; PROTHROMBIN TIME 14.9 SECONDS (12.5-14.5); RSV AMPLIFICATION NEGATIVE (NEGATIVE)
[2022-04-15 20:40] LABS: PARTIAL THROMBOPLASTIN TIME 32.6 SECONDS (24.8-34.2)
[2022-04-15 20:41] LABS: CK-MB VALUE MASS < 1.0 NG/ML (<3.6); CPK CREATINE PHOSPHOKINASE 172 U/L (39-308); MB/CK RELATIVE INDEX 0.58 (< OR =4)
== END 2022-04-16 02:07 | disposition left against medical advice (07) ==
LOC: M ED 19:11
DX: Z53.21 Procedure and treatment not carried out due to patient leaving prior to being seen by health care provider (principal)

== ENCOUNTER 2022-09-14 12:14 | Emergency (ER) | payer OTHER ==
[~2022-09-14] VITALS: Ht 182.9 cm; Wt 68.3 kg
[~2022-09-14 12:14] MED LIST changes: -DOXY-350 PO; +DOXY-444 PO
[2022-09-14] MEDS ORDERED: IBUPROFEN 800 MG TAB PO ONE (13:35)
[2022-09-14 15:08] VITALS: BP 110/72
[2022-09-14] MEDS ORDERED: IBUP80TA PO (18:46)
[2022-09-14] MEDS ORDERED: ACET-897 PO (18:46)
== END 2022-09-14 18:57 | disposition home or self-care (01) ==
LOC: M ED 12:14
DX: S22.41XA Multiple fractures of ribs, right side, initial encounter for closed fracture (principal); W01.0XXA Fall on same level from slipping, tripping and stumbling without subsequent striking against object, initial encounter; Y92.009 Unspecified place in unspecified non-institutional (private) residence as the place of occurrence of the external cause; Y93.01 Activity, walking, marching and hiking; Y99.8 Other external cause status; J45.909 Unspecified asthma, uncomplicated; R00.1 Bradycardia, unspecified